=== PATIENT | female | born 1945 | race Caucasian/White ===

== ENCOUNTER → 2017-07-12 11:38 | Outpatient (CLI) | payer MEDICARE, OTHER, SELFPAY ==
--- NOTE | 2017-07-12 11:46 | XR_ITS ---
XR chest 2V HISTORY: ITS.REASON: COUGH ORDERING PHYSICIAN: Raine Barger PATIENT AGE: 71 years COMPARISON: 06/05/2015 FINDINGS: The cardiomediastinal silhouette and pulmonary vascularity are within normal limits. The lungs are clear without infiltrates, suspicious nodules, or pleural effusions. No acute bony abnormalities. IMPRESSION: Negative chest, no acute finding
[2017-07-12 12:25] VITALS: PULSE 76; PULSE 80
== END ==
PROVIDERS: PCP Nurse Practitioner Family; Visit Provider Nurse Practitioner Family
DX: R05 Cough (principal)
CPT/HCPCS: 71046; 94060; 94640

== ENCOUNTER → 2017-11-08 16:23 | Outpatient (CLI) | payer MEDICARE, OTHER, SELFPAY ==
[2017-11-08 18:38] LABS: Blood Urea Nitrogen 7 mg/dL (7-18); Creatinine,Serum 0.74 mg/dL (0.55-1.02); Estimated Glomerular Filt Rate 77 ml/min (>60); GFR (African American) 94 ML/MIN (>60)
== END ==
PROVIDERS: Family Provider Family Medicine; PCP Nurse Practitioner Family; Visit Provider Otolaryngology
DX: D33.3 Benign neoplasm of cranial nerves (principal)
CPT/HCPCS: 36415; 82565; 84520

== ENCOUNTER → 2017-11-09 09:08 | Outpatient (CLI) | payer MEDICARE, OTHER, SELFPAY ==
--- NOTE | 2017-11-09 09:11 | MR_ITS ---
MR head/brain wo/w con HISTORY: Left sided hearing loss and tinnitus with headache and dizziness ITS.REASON: evaluation of temporal bones ORDERING PHYSICIAN: Jean-Claude Sevilla MD PATIENT AGE: 72 years Comparison: 04/27/2016 TECHNIQUE: Standard multiplanar multiecho sequences are performed without and with gadolinium enhancement. Thin section axial and coronal pre and post enhanced T1 weighted images are also obtained of the cerebellopontine angles. FINDINGS: No midline shift, mass effect, intracranial hemorrhage, hydrocephalus, or enhancing lesions are evident. No evidence of acute infarction. There are scant T2 white matter hyperintensities consistent with minimal ischemic gliotic change from small vessel disease. No enhancing lesions are evident. The hippocampal gyri are unremarkable and the temporal horns of the lateral ventricles are symmetric. The pituitary and optic chiasm are unremarkable. No enhancing lesions are evident at the cerebellopontine angles. There is some increased T2 signal within the left mastoid sinus. This however is less apparent on today's study than when compared to the previous exam. IMPRESSION: 1. No evidence of cerebellopontine angle lesion/mass or abnormal enhancement. 2. Small amount of fluid noted within left mastoid sinus. The increased T2 signal of the left mastoid sinus however is much less apparent on today's exam than when compared to the previous study
== END ==
PROVIDERS: Family Provider Family Medicine; PCP Nurse Practitioner Family; Visit Provider Otolaryngology
DX: D33.3 Benign neoplasm of cranial nerves (principal)
CPT/HCPCS: 70553; A9576

== ENCOUNTER → 2017-12-29 08:05 | Outpatient (CLI) | payer MEDICARE, OTHER, SELFPAY ==
[2017-12-29 08:52] LABS: Basophils % 0.3 % (0.1-2.0); Eosinophils # 0.1 K/mm3 (0.0-0.4); Eosinophils % 1.8 % (0.1-12.0); Hematocrit 45.6 % (37.0-47.0); Hemoglobin 14.8 g/dL (12.2-16.2); Lymphocytes # 2.4 K/mm3 (0.7-4.5); Lymphocytes % 31.6 K/mm3 (10-50); Mean Corpuscular HGB Conc 32.5 g/dL (31.8-35.4); Mean Corpuscular Hemoglobin 29.1 pg (27.0-31.2); Mean Corpuscular Volume 89.7 fl (81-99); Mean Platelet Volume 7.6 fl (7.4-10.4); Monocytes # 0.3 K/mm3 (0.1-1.0); Monocytes % 4.1 % (1.7-9.3); Neutrophils # 4.7 K/mm3 (1.8-7.8); Neutrophils % 62.2 % (37.0-80.0); Platelet Count 191 K/mm3 (142-424); Red Blood Count 5.09 M/mm3 (4.20-5.40); Red Cell Distribution Width 15.1 % (11.5-17.5); White Blood Count 7.5 K/mm3 (4.8-10.8)
[2017-12-29 10:59] LABS: Alanine Aminotransferase 25 U/L (12-78); Albumin Level 3.6 gm/dL (3.4-5.0); Albumin/Globulin Ratio 1.1 (1.1-1.8); Alkaline Phosphatase 75 U/L (46-116); Aspartate Amino Transferase 16 U/L (15-37); Blood Urea Nitrogen 6 mg/dL (7-18); Calcium 8.9 mg/dL (8.5-10.1); Carbon Dioxide 32 mmol/L (21.0-32.0); Chloride 102 mmol/L (98-107); Chol/HDL Ratio 3.9 (1-3.5); Cholesterol 144 mg/dL (140-200); Creatinine,Serum 0.62 mg/dL (0.55-1.02); Estimated Glomerular Filt Rate 95 ml/min (>60); GFR (African American) 115 ML/MIN (>60); Globulin 3.3 gm/dl (1.3-3.2); Glucose 83 mg/dL (74-106); HDL Cholesterol 37 mg/dL (29-89); LDL Cholesterol 63 mg/dL (0-130); Sodium 138 mmol/L (136-145); Total Protein,Serum 6.9 gm/dL (6.4-8.2); Triglycerides 219 mg/dL (30-200); VLDL Cholesterol 44 mg/dL (0-40)
[2017-12-30 05:23] LABS: Creatinine, Urine 94.6 mg/dL (Not Estab.); Microalbumin, Urine 3.4 ug/mL (Not Estab.)
[2017-12-30 18:17] LABS: Vitamin B12 617 pg/mL (232-1245); Vitamin D 25 Hydroxy 44.8 ng/mL (30.0-100.0)
== END ==
PROVIDERS: Visit Provider Internal Medicine Endocrinology, Diabetes & Metabolism
DX: I10 Essential (primary) hypertension (principal); E11.649 Type 2 diabetes mellitus with hypoglycemia without coma; E03.8 Other specified hypothyroidism; E53.8 Deficiency of other specified B group vitamins; E55.9 Vitamin D deficiency, unspecified; Z79.4 Long term (current) use of insulin
CPT/HCPCS: 36415; 80053; 80061; 82043; 82570; 82607; 82652; 85025

== ENCOUNTER → 2018-06-30 10:24 | Outpatient (CLI) | payer MEDICARE, BC, SELFPAY ==
[2018-06-30 11:03] LABS: Basophils % 0.5 % (0.1-2.0); Eosinophils # 0.1 K/mm3 (0.0-0.4); Eosinophils % 1.4 % (0.1-12.0); Hematocrit 45.9 % (37.0-47.0); Hemoglobin 14.5 g/dL (12.2-16.2); Lymphocytes # 2.1 K/mm3 (0.7-4.5); Lymphocytes % 30.5 % (10-50); Mean Corpuscular HGB Conc 31.6 g/dL (31.8-35.4); Mean Corpuscular Hemoglobin 28.5 pg (27.0-31.2); Mean Platelet Volume 8.2 fl (7.4-10.4); Monocytes # 0.3 K/mm3 (0.1-1.0); Neutrophils # 4.3 K/mm3 (1.8-7.8); Neutrophils % 63.6 % (37.0-80.0); Platelet Count 189 K/mm3 (142-424); Red Cell Distribution Width 15.2 % (11.5-17.5); White Blood Count 6.7 K/mm3 (4.8-10.8)
[2018-06-30 19:44] LABS: Alanine Aminotransferase 22 U/L (12-78); Albumin Level 3.5 gm/dL (3.4-5.0); Albumin/Globulin Ratio 1.1 (1.1-1.8); Alkaline Phosphatase 69 U/L (46-116); Anion Gap 12.3 mEq/L (5-15); Aspartate Amino Transferase 20 U/L (15-37); Blood Urea Nitrogen 11 mg/dL (7-18); Carbon Dioxide 30 mmol/L (21.0-32.0); Chloride 100 mmol/L (98-107); Chol/HDL Ratio 3.9 (1-3.5); Cholesterol 148 mg/dL (140-200); Creatinine,Serum 0.68 mg/dL (0.55-1.02); Estimated Glomerular Filt Rate 85 ml/min (>60); GFR (African American) 103 ML/MIN (>60); Globulin 3.3 gm/dl (1.3-3.2); Glucose 91 mg/dL (74-106); HDL Cholesterol 38 mg/dL (29-89); LDL Cholesterol 84 mg/dL (0-130); Potassium 4.3 mmoL/L (3.5-5.1); Sodium 138 mmol/L (136-145); Thyroid Stimulating Hormone 1.06 uIU/ml (0.358-3.740); Total Protein,Serum 6.8 gm/dL (6.4-8.2); Triglycerides 129 mg/dL (30-200); VLDL Cholesterol 26 mg/dL (0-40)
== END ==
PROVIDERS: Visit Provider Internal Medicine Endocrinology, Diabetes & Metabolism
DX: E11.9 Type 2 diabetes mellitus without complications (principal); E78.2 Mixed hyperlipidemia; E03.8 Other specified hypothyroidism; Z79.4 Long term (current) use of insulin
CPT/HCPCS: 36415; 80053; 80061; 84443; 85025

== ENCOUNTER → 2018-12-29 07:46 | Outpatient (CLI) | payer MEDICARE, BC, SELFPAY ==
[2018-12-29 08:16] LABS: Creatinine,Urine Random 129 mg/dL (20-320)
[2018-12-29 11:45] LABS: Alanine Aminotransferase 28 U/L (12-78); Albumin Level 3.5 gm/dL (3.4-5.0); Alkaline Phosphatase 76 U/L (46-116); Anion Gap 9.6 mEq/L (5-15); Aspartate Amino Transferase 18 U/L (15-37); Bilirubin,Total 1.1 mg/dL (0.2-1.0); Blood Urea Nitrogen 9 mg/dL (7-18); Calcium 9.3 mg/dL (8.5-10.1); Carbon Dioxide 35 mmol/L (21.0-32.0); Chloride 100 mmol/L (98-107); Chol/HDL Ratio 3.3 (1-3.5); Cholesterol 135 mg/dL (140-200); Creatinine,Serum 0.66 mg/dL (0.55-1.02); Estimated Glomerular Filt Rate 88 ml/min (>60); GFR (African American) 107 ML/MIN (>60); Globulin 3.5 gm/dl (1.3-3.2); Glucose 80 mg/dL (74-106); HDL Cholesterol 41 mg/dL (29-89); LDL Cholesterol 69 mg/dL (0-130); Potassium 4.6 mmoL/L (3.5-5.1); Sodium 140 mmol/L (136-145); Triglycerides 125 mg/dL (30-200); VLDL Cholesterol 25 mg/dL (0-40)
== END ==
PROVIDERS: Visit Provider Internal Medicine Endocrinology, Diabetes & Metabolism
DX: E11.9 Type 2 diabetes mellitus without complications (principal); Z79.4 Long term (current) use of insulin; E78.5 Hyperlipidemia, unspecified
CPT/HCPCS: 36415; 80053; 80061; 82043; 82570; 84436; 84439; 84443

== ENCOUNTER → 2019-03-14 10:19 | Outpatient (CLI) | payer MEDICARE, BC, SELFPAY ==
--- NOTE | 2019-03-14 10:21 | MM_ITS ---
PROCEDURE: MM DIG SCREENING MAMM BI W/CAD CLINICAL INDICATION: SCREENING There is a history of breast cancer patient's paternal aunt and cousins both after menopause. There has been previous biopsy right breast for benign disease. COMPARISON: DMDXUR DIG MAMM-DX UNI-RT from 06/13/2013 DMSB DIG MAMM-SCREEN DANILO from 11/04/2014 DMSB DIG MAMM-SCREEN DANILO from 02/24/2016 TECHNIQUE: Standard CC and MLO images were obtained. R2 CAD reviewed. FINDINGS: Scattered fibroglandular densities are seen in the central portions of both breasts. There is a biopsy clip right breast. There are few scattered benign-appearing microcalcifications in each breast along with a single stable microcalcification right breast. There is a stable small benign-appearing nodular density upper-outer quadrant left breast. There is no suspicious lesion and no suspicious microcalcifications. IMPRESSION: Fibrofatty parenchyma with no suspicious BI-RAD Category: 2 Benign Finding(s) FOLLOW-UP: 1YR 1 Year Follow-up (A letter has been sent to the patient regarding results of the study.) Dictated by: Dr. Perez Mata MD 03/15/2019 16:[address] Perez Mata MD in [place] 03/15/2019 16:36
== END ==
PROVIDERS: PCP Family Medicine; Visit Provider Family Medicine
DX: Z12.31 Encounter for screening mammogram for malignant neoplasm of breast (principal)
CPT/HCPCS: 77067

== ENCOUNTER → 2019-04-09 12:52 | Outpatient (CLI) | payer MEDICARE, BC, SELFPAY ==
--- NOTE | 2019-04-09 12:55 | XR_ITS ---
PROCEDURE: XR ANKLE WT BEARING LT MIN 3V CLINICAL INDICATION: pain Bilateral ankle and heel pain COMPARISON: XR FOOT WT BEARING LT 3V from 04/09/2019 FINDINGS: Unremarkable ankle. Minimal hallux valgus with minimal osteoarthritic change of the 1st MTP joint as well as the first 2nd and 3rd metatarsal tarsal joint. Small calcaneal spur. IMPRESSION: Mild hallux valgus with osteoarthritic change Dictated by: Rizwan Judd MD 04/09/2019 13:27 Electronically signed by Rizwan Judd MD in [place] 04/09/2019 13:27
--- NOTE | 2019-04-09 12:55 | XR_ITS ---
PROCEDURE: XR ANKLE WT BEARING RT MIN 3V CLINICAL INDICATION: pain Bilateral ankle and heel pain COMPARISON: XR FOOT WT BEARING RT 3V from 04/09/2019 FINDINGS: The ankle has an unremarkable appearance. There is mild hallux valgus with mild osteoarthritic change of the 1st MTP joint. Mild osteoarthritis is also present at the 1st 2nd 3rd and 4th metatarsal tarsal joints. Prominent exostosis involves the calcaneus at the posterior subtalar joint posteriorly with an extra calcific density present posterior to the prominent hyperostotic region. IMPRESSION: Osteoarthritis of the posterior subtalar joint with prominent osteophyte formation of the calcaneus at this region Mild hallux valgus with osteoarthritis of the 1st MTP joint Dictated by: Rizwan Judd MD 04/09/2019 13:26 Electronically signed by Rizwan Judd MD in [place] 04/09/2019 13:26
== END ==
PROVIDERS: PCP Family Medicine; Visit Provider Podiatrist
DX: M25.572 Pain in left ankle and joints of left foot (principal); M25.571 Pain in right ankle and joints of right foot; M79.672 Pain in left foot; M79.671 Pain in right foot
CPT/HCPCS: 73610; 73630

== ENCOUNTER → 2019-06-20 12:55 | Outpatient (CLI) | payer MEDICARE, BC, SELFPAY ==
--- NOTE | 2019-06-20 13:01 | CT_ITS ---
PROCEDURE: CT SHOULDER RT WO CON CLINICAL HISTORY: RT SHOULDER PAIN, PULLED MUSCLE COMPARISON: No exams were available for comparison TECHNIQUE: Axial images obtained with sagittal and coronal reformats. All CT scans at the facility use one or more dose reduction, viz: automated exposure control, ma/kV adjustment per patient size (including targeted exams where dose is matched to indication, i.e. head), or iterative reconstruction technique. 3D reconstruction images were performed. FINDINGS: There is no acute fracture dislocation or destructive lesion. No significant degenerative joint disease is apparent. No abnormal soft tissue mass or fluid collection is apparent. There is no significant joint effusion. If rotator cuff pathology is suspected clinically MRI may be useful to further evaluate the shoulder if the patient is MRI compatible. IMPRESSION: No acute findings. Dictated by: Camron Whyte 06/20/2019 13:24 Electronically signed by Camron Whyte in [place] 06/20/2019 13:24
== END ==
PROVIDERS: PCP Family Medicine; Visit Provider Family Medicine
DX: M25.511 Pain in right shoulder (principal); T14.8XXA Other injury of unspecified body region, initial encounter
CPT/HCPCS: 73200

== ENCOUNTER → 2019-06-27 08:22 | Outpatient (CLI) | payer MEDICARE, BC, SELFPAY ==
[2019-06-27 09:08] LABS: Basophils % 0.1 % (0.1-2.0); Hematocrit 46.9 % (37.0-47.0); Lymphocytes # 1.1 K/mm3 (0.7-4.5); Lymphocytes % 8.6 % (10-50); Mean Corpuscular HGB Conc 31.9 g/dL (31.8-35.4); Mean Corpuscular Hemoglobin 28.6 pg (27.0-31.2); Mean Corpuscular Volume 89.6 fl (81-99); Mean Platelet Volume 8.2 fl (7.4-10.4); Monocytes # 0.3 K/mm3 (0.1-1.0); Neutrophils # 11.9 K/mm3 (1.8-7.8); Neutrophils % 89.3 % (37.0-80.0); Platelet Count 240 K/mm3 (142-424); Red Blood Count 5.24 M/mm3 (4.20-5.40); Red Cell Distribution Width 15.1 % (11.5-17.5); White Blood Count 13.3 K/mm3 (4.8-10.8)
[2019-06-27 09:22] LABS: MANUAL DIFFERENTIAL MANUAL DIFFERENTIAL (MANUAL DIFF)
[2019-06-27 11:03] LABS: Alanine Aminotransferase 31 U/L (12-78); Albumin Level 3.6 gm/dL (3.4-5.0); Alkaline Phosphatase 61 U/L (46-116); Anion Gap 18.5 mEq/L (5-15); Aspartate Amino Transferase 14 U/L (15-37); Bilirubin,Total 0.8 mg/dL (0.2-1.0); Blood Urea Nitrogen 8 mg/dL (7-18); Calcium 9.6 mg/dL (8.5-10.1); Carbon Dioxide 25 mmol/L (21.0-32.0); Chloride 99 mmol/L (98-107); Chol/HDL Ratio 3.2 (1-3.5); Cholesterol 167 mg/dL (140-200); Creatinine,Serum 0.73 mg/dL (0.55-1.02); Estimated Glomerular Filt Rate 78 ml/min (>60); GFR (African American) 95 ML/MIN (>60); Globulin 3.7 gm/dl (1.3-3.2); Glucose 185 mg/dL (74-106); HDL Cholesterol 52 mg/dL (29-89); LDL Cholesterol 96 mg/dL (0-130); Potassium 4.5 mmoL/L (3.5-5.1); Sodium 138 mmol/L (136-145); Total Protein,Serum 7.3 gm/dL (6.4-8.2); Triglycerides 93 mg/dL (30-200); VLDL Cholesterol 19 mg/dL (0-40)
[2019-06-27 11:53] LABS: Free T4 (Free Thyroxine) 1.13 ng/dl (0.76-1.46)
[2019-06-27 11:54] LABS: Thyroid Stimulating Hormone 0.57 uIU/ml (0.358-3.740)
[2019-06-27 12:44] LABS: Lymphocytes % 8 % (10-50); Monocytes % 3 % (2-9); Neutrophils % 89 % (42-76); Total Cells Counted 100
[2019-06-27 12:45] LABS: Platelet Estimate Normal; RBC Morphology Normal
[2019-06-28 17:03] LABS: Vitamin B12 785 pg/mL (232-1245); Vitamin D 25 Hydroxy 35.4 ng/mL (30.0-100.0)
== END ==
PROVIDERS: Visit Provider Internal Medicine Endocrinology, Diabetes & Metabolism
DX: E11.65 Type 2 diabetes mellitus with hyperglycemia (principal); E03.8 Other specified hypothyroidism; E55.9 Vitamin D deficiency, unspecified; E53.8 Deficiency of other specified B group vitamins
CPT/HCPCS: 36415; 80053; 80061; 82607; 82652; 84439; 84443; 85007; 85025

== ENCOUNTER 2019-10-10 11:33 | Emergency (ER) | payer MEDICARE, BC, SELFPAY ==
--- NOTE | 2019-10-10 11:50 | HMH.EDGENADL ---
ED Disposition Clinical Impression: Contusion of knee, right Qualifiers: Encounter type: initial encounter Qualified Code(s): S80.01XA - Contusion of right knee, initial encounter Contusion of knee, left Qualifiers: Encounter type: initial encounter Qualified Code(s): S80.02XA - Contusion of left knee, initial encounter Disposition: Home, Self-Care Condition on Discharge: Good Instructions: DI for Contusion Additional Instructions: Tylenol and ice for pain or swelling. Follow-up with your primary care physician if not improving in 4 to 5 days. Referrals: Lan Bravo MD [Primary Care Provider] - - Critical Care Critical Care Time: No Attestation: On 10/10/19, the high probability of a clinically significant, sudden or life threatening deterioration of the following system(s) required my full and direct attention, intervention and personal management. The time I documented below is in addition to time spent performing reported procedures but includes the following listed in this critical care notation. Medical Decision Making - Juan Inquiry Pt receiving controlled substance: No Vital Signs: 10/10/19 12:04 10/10/19 13:26 Temperature 98 F 98.0 F Temperature Source Oral Oral Pulse Rate 74 Pulse Rate [Left Radial] 77 Respiratory Rate 16 18 Blood Pressure 110/80 Blood Pressure [Right Arm] 119/78 Blood Pressure Mean [Right Arm] 91 Blood Pressure Source Automatic Cuff Blood Pressure Position Sitting Blood Pressure Position [Right Arm] Sitting 02 Sat by Pulse Oximetry 98 Oxygen Delivery Method Room Air Room Air General Adult HPI - General Stated complaint: [id number] knee pain, fell at high school Time Seen by Provider: 10/10/19 12:10 - History of Present Illness HPI narrative: The patient states she was at a graduation today, walking up some steps and slipped, falling forward and striking both of her knees in the patellar area. She said she had some bilateral prepatellar swelling which improved after ice was applied. She is able to ambulate. She says that she had bilateral knee replacements over 5 years ago and just wants to have them checked. - Related Data Home Medications Medication Instructions Recorded Confirmed calcium carbonate-vitamin D3 600 See Rx Instructions PO DAILY cap 08/11/17 10/09/19 mg calcium-200 unit capsule carvedilol 3.125 mg tablet 3.125 mg PO BID 08/11/17 10/09/19 citalopram 20 mg tablet 20 mg PO DAILY 08/11/17 10/09/19 ezetimibe 10 mg tablet 10 mg PO DAILY 08/11/17 10/09/19 ferrous sulfate 325 mg (65 mg 325 mg PO DAILY tab 08/11/17 10/09/19 iron) tablet furosemide 20 mg tablet 20 mg PO DAILY 08/11/17 10/09/19 insulin degludec 100 unit/mL (3 66 mg SUB-Q DAILY ml 08/11/17 10/09/19 mL) subcutaneous pen levothyroxine 75 mcg capsule 75 mcg PO DAILY 08/11/17 10/09/19 liraglutide 0.6 mg/0.1 mL (18 mg/3 1.8 mg SUB-Q DAILY ml 08/11/17 10/09/19 mL) subcutaneous pen injector metformin 1,000 mg tablet 1,000 mg PO BID 08/11/17 10/09/19 omeprazole 40 mg capsule,delayed 40 mg PO DAILY 08/11/17 10/09/19 release tolterodine 4 mg capsule,extended 4 mg PO ONCE 08/11/17 10/09/19 release 24 hr triamcinolone acetonide 0.1 % 1 applic TOPICAL BID PRN 08/11/17 10/09/19 topical cream vitamin B complex 1 cap PO DAILY 08/11/17 10/09/19 losartan 100 mg tablet 100 mg PO DAILY 04/09/19 10/09/19 nitrofurantoin macrocrystal 50 mg 50 mg PO QHS 04/09/19 10/09/19 capsule nortriptyline 25 mg capsule 25 mg PO cap 07/04/19 10/09/19 coenzyme Q10 200 mg/gram oral 200 mg PO DAILY g 10/09/19 powder Previous Rx's Medication Instructions Recorded meclizine 25 mg tablet 25 mg PO NEEDED #30 tab 11/17/17 Allergies Allergy/AdvReac Type Severity Reaction Status Date / Time hydrocodone [HYDROCODONE] Allergy Intermediate I-ITCHING Verified 10/09/19 13:17 morphine [MORPHINE] Allergy Intermediate I-ITCHING Verified 10/09/19 13:17 propoxyphene [From [facility]]
[2019-10-10 12:04] VITALS: BP 119/78; PULSE 77; RESP 16; TEMP 36.6; O2SAT 98; BMI 36.8
--- NOTE | 2019-10-10 12:15 | XR_ITS ---
PROCEDURE: XR KNEE RT 3V CLINICAL INDICATION: pain COMPARISON: No exams were available for comparison FINDINGS: Status post total knee prosthesis placement. There is good alignment. No fracture or dislocation. Other findings:None. IMPRESSION: Status post total knee prosthesis placement otherwise negative Dictated by: Rizwan Judd MD 10/10/2019 15:00 Electronically signed by Rizwan Judd MD in [place] 10/10/2019 15:00
--- NOTE | 2019-10-10 12:15 | XR_ITS ---
PROCEDURE: XR KNEE LT 3V CLINICAL INDICATION: pain Posttraumatic pain COMPARISON: XR KNEE RT 3V from 10/10/2019 FINDINGS: There is a total right knee prosthesis in place with good alignment. No evidence of orthopedic complications. There is some periarticular calcification which is nonspecific. Other findings:None. IMPRESSION: Total knee prosthesis present with no acute finding Dictated by: Rizwan Judd MD 10/10/2019 14:06 Electronically signed by Rizwan Judd MD in [place] 10/10/2019 14:06
--- NOTE | 2019-10-10 12:42 | PC.NURSE ---
Pt to rad.
[2019-10-10 13:26] VITALS: BP 110/80; PULSE 74; RESP 18; TEMP 36.7; O2SAT 94
== END 2019-10-10 13:27 | disposition home or self-care (01) ==
PROVIDERS: Emergency Provider Emergency Medicine; PCP Family Medicine
DX: S80.01XA Contusion of right knee, initial encounter (principal); S80.02XA Contusion of left knee, initial encounter; W10.9XXA Fall (on) (from) unspecified stairs and steps, initial encounter; Y92.89 Other specified places as the place of occurrence of the external cause; Z96.651 Presence of right artificial knee joint; Z96.652 Presence of left artificial knee joint; E11.9 Type 2 diabetes mellitus without complications; K21.9 Gastro-esophageal reflux disease without esophagitis; F41.9 Anxiety disorder, unspecified; E78.5 Hyperlipidemia, unspecified; I10 Essential (primary) hypertension; Z90.49 Acquired absence of other specified parts of digestive tract; Z88.5 Allergy status to narcotic agent; Z79.899 Other long term (current) drug therapy
CPT/HCPCS: 73562; 99282

== ENCOUNTER → 2020-05-06 11:52 | Outpatient (CLI) | payer MEDICARE, BC, SELFPAY ==
--- NOTE | 2020-05-06 11:59 | XR_ITS ---
PROCEDURE: XR CHEST 2V CLINICAL HISTORY: COUGH COMPARISON: CR CXR1 CHEST-PORTABLE from 04/15/2014 CR CXR CHEST(2 VIEWS-NOT PORTABLE) from 06/05/2015 CR CXR2V XR chest 2V from 07/12/2017 CR CXR2V XR chest 2V from 03/26/2018 FINDINGS: The cardiomediastinal silhouette and pulmonary vascularity are within normal limits. The lungs are clear without infiltrates, suspicious nodules, or pleural effusions. No acute bony abnormalities. IMPRESSION: No acute findings. Dictated by: Rizwan Judd MD 05/06/2020 17:10 Rizwan Judd MD in [place] 05/06/2020 17:10
== END ==
PROVIDERS: PCP Nurse Practitioner Family; Visit Provider Nurse Practitioner Family
DX: R05 Cough (principal)
CPT/HCPCS: 71046

== ENCOUNTER → 2021-03-24 10:21 | Outpatient (CLI) | payer MEDICARE, BC, SELFPAY | PROVIDERS: PCP Family Medicine; Visit Provider Nurse Practitioner | DX: Z20.822 Contact with and (suspected) exposure to COVID-19 (principal) | CPT/HCPCS: C9803; U0003; U0005 ==

== ENCOUNTER → 2021-04-09 12:29 | Outpatient (CLI) | payer MEDICARE, BC, SELFPAY ==
--- NOTE | 2021-04-09 12:36 | XR_ITS ---
PROCEDURE: XR CHEST 2V CLINICAL HISTORY: COUGH X 2 YEARS COMPARISON: CR CXR2V XR chest 2V from 07/12/2017 CR CXR2V XR chest 2V from 03/26/2018 DX XR CHEST 2V from 05/06/2020 FINDINGS: The cardiomediastinal silhouette and pulmonary vascularity are within normal limits. Coronary artery calcifications noted. The lungs are clear without infiltrates, suspicious nodules, or pleural effusions. No acute bony abnormalities. IMPRESSION: No acute findings. Dictated by: Rizwan Judd MD 04/09/2021 13:25 Rizwan Judd MD in [place] 04/09/2021 13:25
== END ==
PROVIDERS: PCP Nurse Practitioner Family; Visit Provider Nurse Practitioner Family
DX: R05.9 Cough, unspecified (principal)
CPT/HCPCS: 71046

== ENCOUNTER → 2021-05-07 14:39 | Outpatient (CLI) | payer MEDICARE, BC, SELFPAY ==
--- NOTE | 2021-05-07 15:00 | PC.NURSE ---
PFT and 6 minute walk test completed without incident. Albuterol 0.083% given via HHN Pt tolerated tx well.
== END ==
PROVIDERS: PCP Nurse Practitioner Family; Visit Provider Internal Medicine Pulmonary Disease
DX: R06.09 Other forms of dyspnea (principal)
CPT/HCPCS: 94060; 94618; 94726; 94729

== ENCOUNTER → 2021-06-23 13:24 | Outpatient (CLI) | payer MEDICARE, BC, SELFPAY ==
--- NOTE | 2021-06-23 13:25 | CT_ITS ---
FINAL REPORT TECHNIQUE: Axial images were obtained through the chest without contrast. CLINICAL HISTORY: COugh/ SOB, nonsmoker, no sx to chest FINDINGS: There is an aberrant right subclavian artery. There is no significant mediastinal adenopathy. There is a densely calcified mitral annulus. A small sliding-type hiatal hernia is identified. There is scarring at the left base. There is mild nodularity to the liver margin concerning for cirrhosis. Mild splenomegaly is identified. There is asymmetric nodularity of the right breast parenchyma well-seen on images 82 through 96 of series 3. IMPRESSION: Aberrant right subclavian artery. Asymmetric nodularity of the right breast tissue. Please correlate with physical exam and mammography. Findings concerning for cirrhosis with mild splenomegaly. Reviewed, Interpreted and Dictated by Pedrito Adames MD Transcribed by Natalia Chiu Authenticated by Pedrito Adames MD on 06/23/2021 02:42:29 PM [facility]
== END ==
PROVIDERS: PCP Nurse Practitioner Family; Visit Provider Internal Medicine Pulmonary Disease
DX: R05.3 Chronic cough (principal); R06.02 Shortness of breath
CPT/HCPCS: 71250

== ENCOUNTER → 2021-08-11 08:10 | Outpatient (CLI) | payer MEDICARE, BC, SELFPAY ==
--- NOTE | 2021-08-11 08:14 | MM_ITS ---
PROCEDURE INFORMATION: Exam: MG Bilateral Screening 3D Mammography Exam date and time: 08/11/2021 8:14 AM Age: 76 years old Clinical indication: Encounter for screening mammogram for malignant neoplasm of breast. An aunt and several cousins had breast cancer. TECHNIQUE: Imaging protocol: Bilateral Screening tomosynthesis and 2D mammography including computer-aided detection (CAD) when performed. COMPARISON: 1. MG MM DIG SCREENING MAMM BI W/CAD 03/14/2019 10:36 AM 2. MG DMSB DIG MAMM-SCREEN DANILO 02/24/2016 8:58 AM 3. MG DMSB DIG MAMM-SCREEN DANILO 11/04/2014 3:54 PM 4. MG DMDXUR DIG MAMM-DX UNI-RT 06/13/2013 11:59 AM FINDINGS: MAMMOGRAPHY: Breast composition: The breast tissue is composed of scattered areas of fibroglandular density. Mass: No suspicious masses. Architectural distortion: None. Calcifications: No suspicious calcifications. Asymmetric density: No developing asymmetry. Skin thickening: None. Axillary adenopathy: None. Other: Right biopsy clip. IMPRESSION: No mammographic evidence of malignancy. Annual screening is recommended unless otherwise clinically indicated. ASSESSMENT: BI-RADS Category 2: Benign
== END ==
PROVIDERS: PCP Nurse Practitioner Family; Visit Provider Nurse Practitioner Family
DX: Z12.31 Encounter for screening mammogram for malignant neoplasm of breast (principal)
CPT/HCPCS: 77063; 77067

== ENCOUNTER 2021-08-31 14:00 | Outpatient (RCR) | payer MEDICARE, BC, SELFPAY ==
--- NOTE | 2021-08-11 09:59 | HMH.PTOPEV ---
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 Pt reports no radicular s/s currently. PMH:DM Chief Complaint Pain,Stiff Symptom Type Ache,Dull Symptoms Relieved By Rest/Positioning,Heat Symptoms Aggravated By Sitting Prior Functional Limitations Desk Work/Reading,Sleeping, Sitting Current Functional Limitations Dressing,Sleeping,Sitting Symptom Description Constant but Variable Level of pain today (0-10) 4 Pain scale - at its best (0-10) 3 Pain scale - at its worst (0-10) 6 Cervical Eval Palpation Cervical Muscles R Cervical Paraspinal,L Cervical Paraspinal,R Suboccipital,L Suboccipital,R CT Junction,L CT Junction,R Upper Trapezius,L Upper Trapezius Cervical/Thoracic Palpation Findings Tenderness,Trigger Point, Muscle Guarding Posture Head/C-Spine Posture Sitting Position Flexed Head/C-Spine Posture Standing Position Flexed Flexibility Deficits Upper Trapezius Muscle Length (R) Moderate Tightness,(L) Moderate Tightness Levaetor Scapulae Muscle Length (R) Mild Tightness,(L) Mild Tightness Scalene Group Muscle Length (R) Mild Tightness,(L) Mild Tightness Pectoralis Major Muscle Length (R) Mild Tightness,(L) Mild Tightness Pectoralis Minor Muscle Length (R) Mild Tightness,(L) Mild Tightness Passive Joint Mobility Cervical PIVM Dec: R OA L OA R AA L AA R C2/3 L C2/3 R C3/4 L C3/4 R C4/5
== END 2021-08-31 14:05 | disposition home or self-care (01) ==
LOC: PT 14:00
PROVIDERS: Visit Provider Nurse Practitioner Family
DX: M40.00 Postural kyphosis, site unspecified (principal); M54.2 Cervicalgia
CPT/HCPCS: 20560; 97010; 97014; 97035; 97110; 97140; 97163; G0283

== ENCOUNTER → 2021-09-22 10:49 | Outpatient (POV) | payer MEDICARE, BC, SELFPAY | PROVIDERS: Visit Provider Dermatology | DX: Z00.00 Encounter for general adult medical examination without abnormal findings (principal) ==

== ENCOUNTER → 2021-09-22 11:17 | Outpatient (CLI) | payer MEDICARE, BC, SELFPAY ==
[2021-09-23 07:22] LABS: Hep A Ab, IgM Negative (Negative); Hepatitis B Core Antibody IgM Negative (Negative); Hepatitis B Surface Antigen Negative (Negative); Hepatitis C Antibody <0.1 s/co ratio (0.0-0.9)
== END ==
PROVIDERS: Visit Provider Dermatology
DX: Z79.899 Other long term (current) drug therapy; L43.8 Other lichen planus
CPT/HCPCS: 36415; 80074

== ENCOUNTER → 2021-10-20 11:09 | Outpatient (POV) | payer MEDICARE, BC, SELFPAY | PROVIDERS: Visit Provider Dermatology | DX: Z00.00 Encounter for general adult medical examination without abnormal findings (principal) ==

== ENCOUNTER → 2021-11-17 08:51 | Outpatient (POV) | payer MEDICARE, BC, SELFPAY | PROVIDERS: Visit Provider Dermatology | DX: Z00.00 Encounter for general adult medical examination without abnormal findings (principal) ==

== ENCOUNTER → 2022-03-24 13:10 | Outpatient (CLI) | payer MEDICARE, BC, SELFPAY | PROVIDERS: PCP Nurse Practitioner Family; Visit Provider Nurse Practitioner Family | DX: J20.9 Acute bronchitis, unspecified (principal) ==

== ENCOUNTER 2022-07-31 10:45 | Emergency (ER) | payer MEDICARE, BC, SELFPAY ==
[2022-07-31 10:50] VITALS: BP 125/57; PULSE 78; RESP 22; TEMP 36.8; O2SAT 94; BMI 31.2
[2022-07-31 11:11] LABS: UTC Influenza A Antigen Negative (Negative)
[2022-07-31 11:12] LABS: UTC Influenza B Antigen Negative (Negative)
[2022-07-31 11:36] VITALS: BP 125/57; PULSE 78; RESP 22; TEMP 36.8; O2SAT 94
--- NOTE | 2022-07-31 11:36 | EXP.UTC ---
Discharge Plan Disposition Patient Disposition: Home, Self-Care Condition: Good Prescriptions Prescriptions: New azithromycin [azithromycin] 250 mg tablet 250 mg PO DIRECTED Qty: 6 0RF Rx Instructions: Take two (2) tablets on day #1, then one (1) tablet day #2 thru #5 No Action omeprazole 40 mg capsule,delayed release(DR/EC) 40 mg PO DAILY ezetimibe [Zetia] 10 mg tablet 10 mg PO DAILY furosemide 20 mg tablet 20 mg PO DAILY insulin degludec [Tresiba FlexTouch U-100] 100 unit/mL (3 mL) insulin pen 66 mg SUB-Q DAILY metformin 1,000 mg tablet 1,000 mg PO BID liraglutide [Victoza 2-Toni] 0.6 mg/0.1 mL (18 mg/3 mL) pen injector 1.8 mg SUB-Q DAILY levothyroxine 75 mcg capsule 75 mcg PO DAILY tolterodine 4 mg capsule,extended release 24hr 4 mg PO ONCE triamcinolone acetonide 0.1 % cream 1 applic TOPICAL BID PRN (Reason: topical) ferrous sulfate [FeroSul] 325 mg (65 mg iron) tablet 325 mg PO DAILY calcium carbonate-vitamin D3 [Calcium 600 + D(3)] 600 mg calcium- 200 unit capsule See Rx Instructions PO DAILY Label Comments: 600mg PO Rx Instructions: 600mg PO vitamin B complex [Super B-50 Complex] capsule 1 cap PO DAILY nortriptyline 25 mg capsule 25 mg PO meclizine 25 mg tablet 25 mg PO NEEDED Qty: 30 0RF coenzyme Q10 200 mg/gram oral powder 200 mg/gram powder 200 mg PO DAILY losartan 100 mg tablet 100 mg PO DAILY carvedilol 6.25 mg tablet 6.25 mg PO citalopram 40 mg tablet 40 mg PO doxycycline hyclate 100 mg tablet 100 mg PO BID 10 Days Qty: 20 0RF (DME) pen needle, diabetic 32 gauge x 5/32 needle See Rx Instructions .ROUTE .MEDSUPPLY Qty: 50 Rx Instructions: As directed insulin degludec 200 unit/mL (3 mL) insulin pen SQ (DME) blood sugar diagnostic Strip See Rx Instructions .ROUTE .MEDSUPPLY Qty: 10 Rx Instructions: As directed nystatin-triamcinolone 100,000-0.1 unit/gram-% ointment TOPICAL Cortisporin-TC 3.3-3-10-0.5 mg/mL drops,suspension 4 drp OTIC TID 7 Days Qty: 10 0RF Rx Instructions: iv gtts bilateral tid x 7 days tolterodine [Detrol LA] 4 mg capsule,extended release 24hr 4 mg PO DAILY Qty: 90 3RF nitrofurantoin macrocrystal 50 mg capsule 50 mg PO DAILY Qty: 90 3RF Rx Instructions: must administer with a meal/food fluticasone propionate [Flonase Allergy Relief] 50 mcg/actuation spray,suspension 1 spray INTRANASAL DAILY 90 Days Qty: 16 3RF Rx Instructions: administer into each nostril azelastine 205.5 mcg (0.15 %) spray,non-aerosol 2 spray INTRANASAL HS 90 Days Qty: 30 3RF Rx Instructions: administer into each nostril cetirizine [Zyrtec] 10 mg tablet 10 mg PO DAILY PRN (Reason: allergy symptoms) Qty: 30 2RF nitrofurantoin macrocrystal 50 mg capsule 50 mg PO QHS Qty: 90 5RF Referrals Follow up/Referrals: Deuce Esquivel MD [Primary Care Provider] - See instructions Activity Restrictions/Add. Instructions Additional Instructions/Restrictions: Start antibiotic today. Be sure to complete entire prescription even if feeling better Tylenol and ibuprofen as needed for pain or fever Humidifier/vaporizer/hot steamy shower Follow-up with primary care tomorrow. Follow-up immediately in the ER of the [facility] for new or worsening symptoms or no noticeable improvement over the next 48-72 hours. Stop smoking Inhaler every 4-6 hours as needed. Should help open airways improved cough, wheezing, shortness of breath Jeff Ortiz will not cause drowsiness to use at bedtime to help stop cough so that she can get some sleep Start steroids today. Helps with inflammation therefore coughing and wheezing. Follow directions on package. Clinical Impressions Clinical Impression: Acute bronchitis, Otitis media Instructions Patient Instructions: Middle Ear Inf
== END 2022-07-31 12:00 | disposition home or self-care (01) ==
PROVIDERS: Emergency Provider Nurse Practitioner Family; PCP Family Medicine
DX: J20.9 Acute bronchitis, unspecified (principal); H66.90 Otitis media, unspecified, unspecified ear
CPT/HCPCS: 87804; 99212; 99213; C9803; G0463; U0003; U0005

== ENCOUNTER → 2022-09-17 06:20 | Outpatient (CLI) | payer MEDICARE, BC, SELFPAY | PROVIDERS: PCP Family Medicine; Visit Provider Nurse Practitioner | DX: E66.9 Obesity, unspecified (principal); I45.10 Unspecified right bundle-branch block; R06.09 Other forms of dyspnea; R53.1 Weakness; R53.83 Other fatigue; R94.31 Abnormal electrocardiogram [ECG] [EKG]; Z82.49 Family history of ischemic heart disease and other diseases of the circulatory system; Z68.31 Body mass index [BMI] 31.0-31.9, adult | CPT/HCPCS: 78452; 93017; 93306; A9502; J2785 ==

== ENCOUNTER → 2022-09-28 11:16 | Outpatient (CLI) | payer MEDICARE, BC, SELFPAY | PROVIDERS: PCP Nurse Practitioner Family; Visit Provider Physician Assistant | DX: R06.09 Other forms of dyspnea (principal); R53.1 Weakness; R53.83 Other fatigue; I45.10 Unspecified right bundle-branch block; R94.31 Abnormal electrocardiogram [ECG] [EKG] | CPT/HCPCS: 93225 ==

== ENCOUNTER → 2022-10-26 10:30 | Outpatient (CLI) | payer MEDICARE, BC, SELFPAY ==
--- NOTE | 2022-10-26 10:31 | MM_ITS ---
PROCEDURE INFORMATION: Exam: MG Bilateral Screening 3D Mammography Exam date and time: 10/26/2022 10:27 AM Age: 77 years old Clinical indication: Screening examination. Paternal cousins and paternal aunt had breast cancer. TECHNIQUE: Imaging protocol: Bilateral Screening tomosynthesis and 2D mammography including computer-aided detection (CAD) when performed. COMPARISON: 1. MG MM DIG SCREENING MAMM BI W/CAD 08/11/2021 8:09 AM 2. MG MM DIG SCREENING MAMM BI W/CAD 03/14/2019 10:36 AM 3. MG DMSB DIG MAMM-SCREEN DANILO 02/24/2016 8:58 AM 4. MG DMSB DIG MAMM-SCREEN DANILO 11/04/2014 3:54 PM FINDINGS: MAMMOGRAPHY: Breast composition: There are scattered areas of fibroglandular density. Mass: No suspicious mass. Architectural distortion: None. Calcifications: No suspicious calcifications. Asymmetric density: No developing asymmetry Skin thickening: None. Axillary adenopathy: None. Other: Right biopsy clip. IMPRESSION: No mammographic evidence of malignancy. Annual screening is recommended unless otherwise clinically indicated. ASSESSMENT: BI-RADS Category 2: Benign
== END ==
PROVIDERS: PCP Nurse Practitioner Family; Visit Provider Nurse Practitioner Family
DX: Z12.31 Encounter for screening mammogram for malignant neoplasm of breast (principal)
CPT/HCPCS: 77063; 77067

== ENCOUNTER 2022-12-28 09:48 | Day surgery (SDC) | payer MEDICARE, BC, SELFPAY ==
[2022-12-27 09:59] VITALS: BMI 30.9
[2022-12-28] VITALS (12 sets, daily range): BP systolic 82–137; BP diastolic 49–62; PULSE 72–86; RESP 15–18; TEMP 36.1; O2SAT 90–97
--- NOTE | 2022-12-28 10:13 | P.PNANES_ITS ---
[facility] Disclaimer: The information contained in this section may have been updated after the patient was seen, as this information can be updated by other users. Medical History Allergic rhinitis, unspecified Chronic cough Surgical History History of carpal tunnel release History of cataract surgery History of section History of colonoscopy History of knee replacement History of myringotomy History of tonsillectomy History of total hip replacement History of umbilical hernia repair Hx of cholecystectomy Family History Other Cancer Coronary artery disease Diabetes Heart attack Hyperlipidemia Hypertension Stroke Social History Smoking Status: Never smoker alcohol intake: never substance use type: denies use current occupational status: other Travel in the last 8 weeks: None household members: spouse housing: house lives independently: No marital status: education level: college service: No residential: No caffeine: Yes special lela needs: No agree to transfusion: No do you feel safe at home: Yes victim of physical abuse: No victim of emotional abuse: No victim of sexual abuse: No would you like helpful sources: No [facility] Anesthesia Checklist Patient Identification Patient Identification: Arm Band and Verbal (Name & ) Structural Data Admitted From: Home Planned Operative Procedure/s: Colonoscopy Consent for Planned Operative Procedure(s) Verified: Yes NPO Status Verified Time NPO: 00:00 Additional verifications Anesthesia Reactions: No Hx Blood Transfusions: No Blood Transfusion Reaction: No Airway Assessment C-Spine Mobility Assessed: Yes TMJ Mobility Assessed: Yes Dentition: Edentulous Neurological Assessment Level of Consciousness: Awake Hx Seizures: No Numbness or tingling in extremities: No Anesthesia Plan Anesthesia Risk discussed: Yes Anesthesia Plan: Verified ASA Class: III Anesthesia Type: MAC
--- NOTE | 2022-12-28 10:52 | P.PCN_ITS ---
Procedure: Date: 12/28/22 Patient Date of :: 1945 Procedure Performed:: Colonoscopy with polypectomy Indications:: History of colon polyps Performing Provider:: Cole Zavala MD Referring Provider:: . Sedation:: Monitored anesthesia care Procedure:: After informed consent was obtained the patient was taken to the endoscopy suite. Sedation ensued after the patient was transferred to the left lateral d ecubitus position. Pulse, blood pressure, and oxygen saturation were monitored throughout the procedure. Digital rectal exam revealed no significant abnormality. The colonoscope was placed in position. The entire colon was evaluated. The colonoscope was carefully removed and the patient was transferred to recovery in stable condition. Please see findings and specimens below for detail. Findings:: Bowel preparation for Profound lack of relaxation Sigmoid diverticulosis Lobulated hepatic flexure polyp Specimens:: Lobulated hepatic flexure polyp (cold snare) Recommendations:: Timing of repeat colonoscopy is pending pathology but will likely be around 1-2 years with extended bowel preparation. Complications:: Poor bowel preparation Estimated blood obtained (mL): 1 Colonoscopy Component Colonoscopy Component Was a colonoscopy performed during today's procedure?: Yes Recommended follow up colonoscopy of at least 10 years?: No If no, follow up colonoscopy recommended in ___ years?: 1-2 years Reason for not recommending >/= 10 yr follow-up interval?: History of polyps; poor bowel preparation
[2022-12-28 11:28] LABS: POC Glucose,Bedside 82 (70-110)
--- NOTE | 2022-12-28 13:00 | XR_ITS ---
FINAL REPORT CLINICAL HISTORY: Post-colonoscopy abdominal pain FINDINGS: Supine abdomen, upper abdomen, and PA chest: The PA view of the chest is unremarkable in appearance. No infiltrate or effusion is identified. The abdominal films reveal a nonspecific gas pattern without evidence of obstruction. There are surgical implants for a left sacroiliac fusion and a right hip total arthroplasty. No evidence of intra-abdominal air is seen. IMPRESSION: Nonspecific gas pattern without evidence of obstruction or free air. Reviewed, Interpreted and Dictated by Rodríguez Resendiz III, MD Transcribed by Marion Pendleton Authenticated and [facility]
--- NOTE | 2022-12-28 13:05 | SUR.PHASEII ---
pt returned from Radiology.
== END 2022-12-28 14:05 | disposition home or self-care (01) ==
PROVIDERS: PCP Nurse Practitioner Family; Visit Provider Surgery
PROC: 0DJD8ZZ Inspection of Lower Intestinal Tract, Via Natural or Artificial Opening Endoscopic (ICD-10-PCS; principal; 2022-12-28 11:30)
DX: Z12.11 Encounter for screening for malignant neoplasm of colon (principal); Z86.010 Personal history of colon polyps; D12.3 Benign neoplasm of transverse colon; K57.30 Diverticulosis of large intestine without perforation or abscess without bleeding
CPT/HCPCS: 45385; 74021; 82962; 88305; J2704

== ENCOUNTER → 2023-04-25 10:04 | Outpatient (CLI) | payer MEDICARE, BC, SELFPAY ==
[2023-04-25 13:17] LABS: Hemoglobin A1C 5.3 % (4.0-6.0)
[2023-04-25 13:34] LABS: Alanine Aminotransferase 22 U/L (12-78); Albumin Level 4.3 g/dl (3.5-5.0); Albumin/Globulin Ratio 1.4 (1.1-1.8); Alkaline Phosphatase 70 U/L (38-126); Anion Gap 14.2 mEq/L (5-15); Aspartate Amino Transferase 31 U/L (14-36); Bilirubin,Total 0.8 mg/dl (0.2-1.3); Blood Urea Nitrogen 8 mg/dl (7-17); Calcium 8.6 mg/dl (8.4-10.2); Carbon Dioxide 27 mmol/L (22.0-30.0); Chloride 93 mmol/L (98-107); Chol/HDL Ratio 4.2 (1-3.5); Cholesterol 142 mg/dl (140-200); Estimated Glomerular Filt Rate 97 ml/min (>60); GFR (African American) 118 ML/MIN (>60); Glucose 91 mg/dl (74-100); HDL Cholesterol 34 mg/dl (40-60); Potassium 4.2 mmoL/L (3.5-5.1); Sodium 130 mmol/L (136-145); Total Protein,Serum 7.3 g/dl (6.3-8.2); Triglycerides 188 mg/dl (30-150); VLDL Cholesterol 38 mg/dL (0-40)
[2023-04-25 14:04] LABS: Thyroid Stimulating Hormone 1.03 uIU/mL (0.465-4.68)
== END ==
PROVIDERS: PCP Nurse Practitioner Family; Visit Provider Nurse Practitioner Family
DX: E11.65 Type 2 diabetes mellitus with hyperglycemia (principal); Z79.4 Long term (current) use of insulin; E03.9 Hypothyroidism, unspecified
CPT/HCPCS: 80053; 80061; 83036; 84443

== ENCOUNTER → 2023-05-16 12:18 | Outpatient (CLI) | payer MEDICARE, BC, SELFPAY ==
--- NOTE | 2023-05-16 12:23 | XR_ITS ---
FINAL REPORT TECHNIQUE: Left index finger, 2 views. CLINICAL HISTORY: left index finger swelling, pain COMPARISON: None FINDINGS: LEFT INDEX FINGER: There is moderate heterotrophic change of the distal interphalangeal and proximal inner phalangeal joints. There is very minimal fragmentation involving the dorsal aspect of the DIP joint, likely degenerative. No acute bony abnormality is identified. 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 Reviewed, Interpreted and Dictated by Pedrito Adames MD Transcribed by Marion Pendleton Authenticated and [facility]
== END ==
PROVIDERS: PCP Nurse Practitioner Family; Visit Provider Nurse Practitioner Family
DX: M79.89 Other specified soft tissue disorders (principal)
CPT/HCPCS: 73140

== ENCOUNTER → 2023-05-16 14:39 | Outpatient (CLI) | payer MEDICARE, BC, SELFPAY ==
[2023-05-16 14:57] LABS: Uric Acid 5.8 mg/dl (2.5-6.2)
[2023-05-18 07:50] LABS: RA Latex Turbid. 11.5 IU/mL (<14.0)
[2023-05-18 11:14] LABS: Antinuclear Antibodies, IFA Negative (.)
== END ==
PROVIDERS: PCP Nurse Practitioner Family; Visit Provider Nurse Practitioner Family
DX: M79.89 Other specified soft tissue disorders (principal)
CPT/HCPCS: 73140; 84550; 86038; 86431

== ENCOUNTER 2023-07-07 09:53 | Emergency (ER) | payer MEDICARE, BC, SELFPAY ==
--- NOTE | 2023-07-07 09:58 | XR_ITS ---
FINAL REPORT CLINICAL HISTORY: FALL yesterday medial sided pain FINDINGS: Three views of the right knee reveal no evidence of fracture or dislocation. Patient is status post right knee arthroplasty. The bony alignment is normal. The joint spaces are preserved. There is no evidence of joint effusion. No localized soft tissue abnormality is identified. IMPRESSION: No acute abnormality identified. Reviewed, Interpreted and Dictated by Rodríguez Resendiz III, MD Transcribed by Shruti Gaspar Authenticated and [facility]
--- NOTE | 2023-07-07 09:58 | XR_ITS ---
FINAL REPORT CLINICAL HISTORY: FALL yesterday pain FINDINGS: RIGHT ANKLE 3 views of the right ankle were obtained. There is no acute fracture or dislocation. The mortise is intact. Visualized joint spaces are normally aligned. Degenerative changes are noted. There is lateral soft tissue swelling. IMPRESSION: No acute bony abnormality. Reviewed, Interpreted and Dictated by Rodríguez Resendiz III, MD Transcribed by Shruti Gaspar Authenticated and [facility]
[2023-07-07 10:40] VITALS: BP 116/67; PULSE 86; RESP 18; TEMP 36.8; O2SAT 97; BMI 31.4
--- NOTE | 2023-07-07 10:54 | ED_ITS ---
Discharge Plan Disposition Patient Disposition: Home, Self-Care Condition: Good Prescriptions Prescriptions: No Action omeprazole 40 mg capsule,delayed release(DR/EC) 40 mg PO DAILY ezetimibe [Zetia] 10 mg tablet 10 mg PO DAILY metformin 1,000 mg tablet 1,000 mg PO BID levothyroxine 75 mcg capsule 75 mcg PO DAILY ferrous sulfate [FeroSul] 325 mg (65 mg iron) tablet 325 mg PO DAILY calcium carbonate-vitamin D3 [Calcium 600 + D(3)] 600 mg calcium- 200 unit capsule 600 cap PO BID Patient Comments: 600mg PO Rx Instructions: 600mg PO vitamin B complex [Super B-50 Complex] capsule 1 cap PO DAILY nortriptyline 25 mg capsule 25 mg PO HS cephalexin 250 mg capsule 250 mg PO HS Lumigan 0.01 % drops 1 drp Eye-Both HS Victoza 2-Toni 0.6 mg/0.1 mL (18 mg/3 mL) pen injector 1.2 mg SQ DAILY triamcinolone acetonide 0.1 % ointment 1 applic topical DAILY PRN losartan 100 mg tablet 100 mg PO DAILY insulin degludec [Tresiba FlexTouch U-100] 100 unit/mL (3 mL) insulin pen 56 unit SQ HS meclizine 25 mg tablet 25 mg PO NEEDED Qty: 30 0RF coenzyme Q10 200 mg/gram oral powder 200 mg/gram powder 200 mg PO DAILY (DME) pen needle, diabetic 32 gauge x 5/32 needle See Rx Instructions .ROUTE .MEDSUPPLY Qty: 50 Rx Instructions: As directed (DME) blood sugar diagnostic Strip See Rx Instructions .ROUTE .MEDSUPPLY Qty: 10 Rx Instructions: As directed cetirizine [Zyrtec] 10 mg tablet 10 mg PO DAILY PRN (Reason: allergy symptoms) Qty: 30 2RF metoprolol succinate [Toprol XL] 25 mg tablet extended release 24 hr 25 mg PO DAILY Qty: 90 1RF citalopram 20 mg tablet 20 mg PO DAILY Qty: 30 2RF furosemide 20 mg tablet 20 mg PO DAILY 30 Days Qty: 30 2RF nitrofurantoin macrocrystal 50 mg capsule 50 mg PO DAILY tolterodine [Detrol LA] 4 mg capsule,extended release 24hr 4 mg PO DAILY Referrals Follow up/Referrals: Barger,Raine, MAIL CARRIER TECHNICIAN [Primary Care Provider] - See instructions Shamar Knutson DO [Staff Physician] - See instructions Activity Restrictions/Add. Instructions Additional Instructions/Restrictions: *weight bearing as tolerated *RICE, Rest the extremity, Ice 15-20 minutes 3-4 times daily, Compress- wear the jeremy wrap as discussed as much as possible to help reduce swelling and pain, Elevate the extremity when at rest *Elevate when resting? *Ibuprofen 600-800mg every 6-8 hours as needed for pain an inflammation if you can take it. If need something more can take Tylenol in between doses of Ibuprofen to help Immediately follow up with your family doctor for new or worsening of symptoms, or no noticeable improvement over the next 3-5 days Clinical Impressions Clinical Impression: Fall Qualifiers: Encounter type: initial encounter Qualified Code(s): W19.XXXA - Unspecified fall, initial encounter Instructions Patient Instructions: DI for Knee Sprain, Contusion, DI for Ankle Sprain Discharge ED Provider: Mary Haji [facility] [place] HPI General Stated complaint: had a fall 6:30 knee pain down leg Mode of Arrival: Ambulatory Source of Information: Patient Limitations: No Limitations Time Seen by Provider: 07/07/23 10:54 Description of Symptoms (Recalled from Triage Doc. by RN): Pt fell last night walking down the wheel chair ramp. She hurts in her right knee and right ankle. HEENT Symptoms (Recalled from RN notes): No Resp Symptoms (Recalled from RN notes): No Skin Symptoms (Recalled from RN notes): No MS Symptoms (Recalled from RN notes): Yes Functional Status (Recalled from RN notes): n/a History of Present Illness Provider Complaint: Patient states that she was walking down the wheelchair ramp at home last night when she slipped and fell landing on her right knee and ankle States that she had surgery on the right knee about 10 yrs ago States that she has been putting ice on it and propping it up on pillows States that she was worried she may have done something to her knee where she had surgery on that knee Related Data Home Medications Medication Instructions Recorded Confirmed calcium carbonate 600 mg-vitamin 600 cap PO BID Supplement 08/11/17 07/07/23 D3 5 mcg (200 unit) capsule (Calcium 600 + D(3)) ezetimibe 10 mg tablet (Zetia) 10 mg PO DAILY Cholesterol 08/11/17 07/07/23 ferrous sulfate 325 mg (65 mg 325 mg PO DAILY Supplement 08/11/17 07/07/23 iron) tablet (FeroSul) levothyroxine 75 mcg capsule 75 mcg PO DAILY thyroid 08/11/17 07/07/23 metformin 1,000 mg tablet 1,000 mg PO BID Diabetes 08/11/17 07/07/23 omeprazole 40 mg capsule,delayed 40 mg PO DAILY GERD 08/11/17 07/07/23 release vitamin B complex (Super B-50 1 cap PO DAILY Supplement 08/11/17 06/14/23 Complex capsule) nortriptyline 25 mg capsule 25 mg PO HS leg pain 07/04/19 07/07/23 coenzyme Q10 200 mg/gram oral 200 mg PO DAILY Supplement 10/09/19 07/07/23 powder (H2Q CoQ10) blood sugar diagnostic #10 ea 06/20/20 06/14/23 pen needle, diabetic 32 gauge x #50 ea 06/20/20 06/14/2332 nitrofurantoin macrocrystal 50 mg 50 mg PO DAILY antibiotic 12/27/22 07/07/23 capsule tolterodine 4 mg capsule,extended 4 mg PO DAILY bladder 12/27/22 07/07/23 release 24 hr (Detrol LA) bimatoprost 0.01 % eye drops 1 drp Eye-Both HS 04/25/23 07/07/23 (Mary) cephalexin 250 mg capsule 250 mg PO HS 04/25/23 07/07/23 liraglutide 0.6 mg/0.1 mL (18 mg/3 1.2 mg SQ DAILY Diabetes 04/25/23 07/07/23 mL) subcutaneous pen injector (Victoza 2-Toni) insulin degludec 100 unit/mL (3 56 unit SQ HS 05/16/23 07/07/23 mL) subcutaneous pen (Tresiba FlexTouch U-100 insulin) losartan 100 mg tablet 100 mg PO DAILY 05/16/23 07/07/23 triamcinolone acetonide 0.1 % 1 applic topical DAILY PRN 05/16/23 06/14/23 topical ointment Previous Rx's Medication Instructions Recorded meclizine 25 mg tablet 25 mg PO NEEDED 1/2- 1 tab 11/17/17 every 6-8 hrs prn dizziness #30 tabs cetirizine 10 mg tablet (Zyrtec) 10 mg PO DAILY PRN allergy 05/26/21 symptoms #30 tabs metoprolol succinate 25 mg 25 mg PO DAILY htn #90 tabs 01/17/23 tablet,extended release 24 hr (Toprol XL) citalopram 20 mg tablet 20 mg PO DAILY #30 tabs 05/10/23 furosemide 20 mg tablet 20 mg PO DAILY Fluid 30 days #30 05/10/23 tabs Allergies Allergy/AdvReac Type Severity Reaction Status Date / Time hydrocodone [HYDROCODONE] Allergy Intermediate I-ITCHING Verified 07/07/23 10:54 morphine [MORPHINE] Allergy Intermediate I-ITCHING Verified 07/07/23 10:54 propoxyphene [From DARVON] Allergy Unknown HEAVY Verified 07/07/23 10:54 SEDATION Worker's Comp Is this a Worker's Comp case?: No [facility] Disclaimer: The information contained in this section may have been updated after the patient was seen, as this information can be updated by other users. Medical History Allergic rhinitis, unspecified Chronic cough Surgical History History of carpal tunnel release History of cataract surgery History of section History of colonoscopy History of knee replacement History of myringotomy History of tonsillectomy History of total hip replacement History of umbilical hernia repair Hx of cholecystectomy Family History Other Cancer Coronary artery disease Diabetes Heart attack Hyperlipidemia Hypertension Stroke Social History Smoking Status: Never smoker alcohol intake: never substance use type: denies use current occupational status: other Travel in the last 8 weeks: None household members: spouse housing: house lives independently: No marital status: education level: college service: No care home: No caffeine: Yes special lela needs: No agree to transfusion: No do you feel safe at home: Yes victim of physical abuse: No victim of emotional abuse: No victim of sexual abuse: No would you like helpful sources: No ROS Obtained: Yes All systems reviewed & no additional complaints except as documented and Yes Systems reviewed as appropriate & no additional complaints except as documented Constitutional Constitutional: Reports system reviewed and no additional complaints, except as documented and Reports as per HPI Cardiovascular Cardiovascular: Reports system reviewed and no additional complaints, except as documented and Reports as per HPI Respiratory Respiratory: Reports system reviewed and no additional complaints, except as documented and Reports as per HPI Gastrointestinal Gastrointestingal: Reports system reviewed and no additional complaints, except as documented and as per HPI Musculoskeletal Musculoskeletal: Reports system reviewed and no additional complaints, except as documented, Reports as per HPI and Reports other Comments: Pain and swelling in right knee and right ankle after falling yesterday at home Physical Exam General General appearance: alert and in no apparent distress ENT ENT exam: Present mucous membranes moist Respiratory Respiratory exam: Present normal lung sounds bilaterally; Absent respiratory distress or wheezes Cardiovascular Cardiovascular exam: Present regular rate, normal rhythm and normal heart sounds Expanded Lower Extremity Exam Right: Knee exam: Present tenderness and swelling Lower leg exam: Present normal inspection Ankle exam: Present tenderness, swelling and ecchymosis Gait: observed and limited by pain (walks with walker) Neurological Exam Neurological exam: Present alert, oriented X3 and normal gait Medical Decision Making Juan Inquiry Pt receiving controlled substance: No Juan was queried for this patient: No Vital Signs: 07/07/23 10:40 Temperature 98.3 F Temperature Source Oral Pulse Rate [Right Radial] 86 Respiratory Rate 18 Blood Pressure [Right Arm] 116/67 Blood Pressure Mean [Right Arm] 83 Blood Pressure Source [Right Arm] Automatic Cuff Blood Pressure Position [Right Arm] Sitting 02 Sat by Pulse Oximetry 97 Oxygen Delivery Method Room Air Orders (Tests/Meds): ORDERS Category Date Time Status XR ankle RT min 3V Stat Exams 07/07/23 09:58 Taken XR knee RT 3V Stat Exams 07/07/23 09:58 Taken Radiology Data #1: Image(s): Knee Image Reviewed: Yes I have reviewed radiologist's interpretation FINDINGS: Three views of the right knee reveal no evidence of fracture or dislocation. Patient is status post right knee arthroplasty. The bony alignment is normal. The joint spaces are preserved. There is no evidence of joint effusion. No localized soft tissue abnormality is identified. IMPRESSION: No acute abnormality identified. #2: Image(s): Ankle Image Reviewed: Yes I have reviewed radiologist's interpretation FINDINGS: RIGHT ANKLE 3 views of the right ankle were obtained. There is no acute fracture or dislocation. The mortise is intact. Visualized joint spaces are normally aligned. Degenerative changes are noted. There is lateral soft tissue swelling. IMPRESSION: No acute bony abnormality.
[2023-07-07 11:35] VITALS: BP 116/67; PULSE 86; RESP 18; TEMP 36.8; O2SAT 97
== END 2023-07-07 11:35 | disposition home or self-care (01) ==
PROVIDERS: Emergency Provider Nurse Practitioner; PCP Nurse Practitioner Family
DX: M25.561 Pain in right knee (principal); M25.571 Pain in right ankle and joints of right foot; W10.2XXA Fall (on)(from) incline, initial encounter
CPT/HCPCS: 73562; 73610; 99212; 99214; G0463

== ENCOUNTER 2023-08-19 15:11 | Outpatient (CLI) | payer MEDICARE, BC, SELFPAY ==
[2023-08-19 15:29] LABS: Basophils # 0.1 K/mm3 (0-0.2); Basophils % 0.9 % (0.1-2.0); Eosinophils # 0.1 K/mm3 (0.0-0.4); Eosinophils % 1.1 % (0.1-12.0); Hemoglobin 13.3 g/dL (12.2-16.2); Lymphocytes # 1.7 K/mm3 (0.7-4.5); Lymphocytes % 22.8 % (10-50); Mean Corpuscular HGB Conc 30.9 g/dL (31.8-35.4); Mean Corpuscular Hemoglobin 25.5 pg (27.0-31.2); Mean Corpuscular Volume 82.3 fl (81-99); Monocytes # 0.4 K/mm3 (0.1-1.0); Monocytes % 5.3 % (1.7-9.3); Neutrophils # 5.1 K/mm3 (1.8-7.8); Neutrophils % 69.9 % (37.0-80.0); Platelet Count 261 K/mm3 (142-424); Red Blood Count 5.23 M/mm3 (4.20-5.40); Red Cell Distribution Width 16.6 % (11.5-17.5); White Blood Count 7.3 K/mm3 (4.8-10.8)
[2023-08-19 15:44] LABS: Microalbumin < 6.000 mg/L (0-16.7)
[2023-08-19 15:55] LABS: Hemoglobin A1C 5.8 % (4.0-6.0)
[2023-08-19 16:01] LABS: Chloride 97 mmol/L (98-107); Potassium 4.3 mmoL/L (3.5-5.1); Sodium 138 mmol/L (136-145)
[2023-08-19 16:04] LABS: Alanine Aminotransferase 20 U/L (12-78); Albumin/Globulin Ratio 1.5 (1.1-1.8); Alkaline Phosphatase 82 U/L (38-126); Anion Gap 15.3 mEq/L (5-15); Aspartate Amino Transferase 32 U/L (14-36); Bilirubin,Total 0.9 mg/dl (0.2-1.3); Blood Urea Nitrogen 8 mg/dl (7-17); Carbon Dioxide 30 mmol/L (22.0-30.0); Estimated Glomerular Filt Rate 97 ml/min (>60); GFR (African American) 117 ML/MIN (>60); Globulin 2.6 g/dL (1.3-3.2); Total Protein,Serum 6.6 g/dl (6.3-8.2)
[2023-08-19 16:05] LABS: Calcium 8.9 mg/dl (8.4-10.2); Glucose 70 mg/dl (74-100)
[2023-08-19 16:34] LABS: Thyroid Stimulating Hormone 1.24 uIU/mL (0.465-4.68)
== END 2023-08-19 23:59 ==
LOC: LAB.DROPOF 15:11
PROVIDERS: PCP Nurse Practitioner Family; Visit Provider Nurse Practitioner Family
DX: E11.9 Type 2 diabetes mellitus without complications (principal); Z79.4 Long term (current) use of insulin; E03.9 Hypothyroidism, unspecified; Z79.84 Long term (current) use of oral hypoglycemic drugs; Z79.85 Long-term (current) use of injectable non-insulin antidiabetic drugs
CPT/HCPCS: 80053; 82043; 83036; 84443; 85025

== ENCOUNTER 2023-11-14 15:05 | Outpatient (CLI) | payer MEDICARE, BC, SELFPAY ==
[2023-11-14 14:39] LABS: Basophils # 0.1 K/mm3 (0-0.2); Basophils % 0.7 % (0.1-2.0); Eosinophils # 0.1 K/mm3 (0.0-0.4); Eosinophils % 1.1 % (0.1-12.0); Hemoglobin 12.8 g/dL (12.2-16.2); Lymphocytes # 1.8 K/mm3 (0.7-4.5); Lymphocytes % 25.9 % (10-50); Mean Corpuscular Hemoglobin 24.9 pg (27.0-31.2); Mean Corpuscular Volume 77.8 fl (81-99); Mean Platelet Volume 8.9 fl (7.4-10.4); Monocytes # 0.4 K/mm3 (0.1-1.0); Monocytes % 5.2 % (1.7-9.3); Neutrophils # 4.7 K/mm3 (1.8-7.8); Neutrophils % 67.1 % (37.0-80.0); Platelet Count 211 K/mm3 (142-424); Red Blood Count 5.14 M/mm3 (4.20-5.40); Red Cell Distribution Width 17.5 % (11.5-17.5); White Blood Count 6.9 K/mm3 (4.8-10.8)
[2023-11-14 15:03] LABS: Alanine Aminotransferase 19 U/L (12-78); Albumin Level 4.2 g/dl (3.5-5.0); Albumin/Globulin Ratio 1.4 (1.1-1.8); Alkaline Phosphatase 65 U/L (38-126); Anion Gap 12.5 mEq/L (5-15); Aspartate Amino Transferase 31 U/L (14-36); Bilirubin,Total 0.8 mg/dl (0.2-1.3); Blood Urea Nitrogen 7 mg/dl (7-17); Calcium 9.4 mg/dl (8.4-10.2); Carbon Dioxide 31 mmol/L (22.0-30.0); Chloride 94 mmol/L (98-107); Estimated Glomerular Filt Rate 97 ml/min (>60); GFR (African American) 117 ML/MIN (>60); Globulin 2.9 g/dL (1.3-3.2); Glucose 95 mg/dl (74-100); Potassium 4.5 mmoL/L (3.5-5.1); Sodium 133 mmol/L (136-145); Total Protein,Serum 7.1 g/dl (6.3-8.2)
[2023-11-14 15:10] LABS: Hemoglobin A1C 5.7 % (4.0-6.0)
== END 2023-11-14 23:59 | disposition home or self-care (01) ==
LOC: LAB.DROPOF 15:06
PROVIDERS: PCP Nurse Practitioner Family; Visit Provider Nurse Practitioner Family
DX: E11.65 Type 2 diabetes mellitus with hyperglycemia (principal); Z79.4 Long term (current) use of insulin; M79.89 Other specified soft tissue disorders; Z79.84 Long term (current) use of oral hypoglycemic drugs; Z79.85 Long-term (current) use of injectable non-insulin antidiabetic drugs
CPT/HCPCS: 80053; 83036; 85025

== ENCOUNTER 2023-11-25 15:37 | Outpatient (CLI) | payer MEDICARE, BC, SELFPAY ==
--- NOTE | 2023-11-25 15:38 | MR_ITS ---
FINAL REPORT TECHNIQUE: Multiplanar MRI without gadolinium enhancement CLINICAL HISTORY: instability of right ankle. LATERAL SIDED ANKLE SWELLING FINDINGS: Articular cartilage: Severe thinning of the articular cartilage is noted involving the posterior facet of the subtalar joint. No osteochondral lesions are seen within the ankle joint. Marrow signal: Significant localized marrow edema is seen of the posterior talus and calcaneus abutting the diseased posterior subtalar joint. There are multiple bone fragments posteriorly. There is irregularity and surrounding edema of these bone fragments. Appearance is suggestive of chronic impingement with associated loose bodies. Joint fluid: Small Tendons: No evidence of tear Ligaments: Major ligaments unremarkable Plantar fascia: No evidence of tear or fasciitis. IMPRESSION: 1. 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 No evidence of ligamentous or tendon abnormality Authenticated and [facility]
== END 2023-11-25 23:59 | disposition home or self-care (01) ==
LOC: RAD 15:38
PROVIDERS: PCP Nurse Practitioner Family; Visit Provider Nurse Practitioner Family
DX: M25.371 Other instability, right ankle (principal); M25.471 Effusion, right ankle
CPT/HCPCS: 73721

== ENCOUNTER 2023-11-28 09:43 | Outpatient (CLI) | payer MEDICARE, BC, SELFPAY | END 2023-11-28 23:59 | disposition home or self-care (01) | LOC: LAB.DROPOF 11-29 09:43 | PROVIDERS: PCP Nurse Practitioner Family; Visit Provider Nurse Practitioner Family | DX: R30.0 Dysuria (principal) | CPT/HCPCS: 87086 ==

== ENCOUNTER 2024-02-03 09:40 | Outpatient (CLI) | payer MEDICARE, BC, SELFPAY ==
[2024-02-03 16:07] LABS: Hemoglobin A1C 5.8 % (4.0-6.0)
[2024-02-03 17:16] LABS: Alanine Aminotransferase 19 U/L (12-78); Albumin Level 4.1 g/dl (3.5-5.0); Albumin/Globulin Ratio 1.3 (1.1-1.8); Alkaline Phosphatase 69 U/L (38-126); Anion Gap 13.4 mEq/L (5-15); Aspartate Amino Transferase 30 U/L (14-36); Bilirubin,Total 1.1 mg/dl (0.2-1.3); Blood Urea Nitrogen 9 mg/dl (7-17); Calcium 9.1 mg/dl (8.4-10.2); Carbon Dioxide 27 mmol/L (22.0-30.0); Chloride 97 mmol/L (98-107); Estimated Glomerular Filt Rate 120 ml/min (>60); GFR (African American) 145 ML/MIN (>60); Globulin 3.2 g/dL (1.3-3.2); Glucose 67 mg/dl (74-100); Potassium 4.4 mmoL/L (3.5-5.1); Sodium 133 mmol/L (136-145); Total Protein,Serum 7.3 g/dl (6.3-8.2)
== END 2024-02-03 23:59 | disposition home or self-care (01) ==
LOC: LAB.DROPOF 02-06 09:40
PROVIDERS: PCP Nurse Practitioner Family; Visit Provider Nurse Practitioner Family
DX: E11.65 Type 2 diabetes mellitus with hyperglycemia (principal); Z79.4 Long term (current) use of insulin; E11.9 Type 2 diabetes mellitus without complications; R53.83 Other fatigue
CPT/HCPCS: 80053; 83036

== ENCOUNTER 2024-03-06 15:00 | Outpatient (POV) | payer MEDICARE, BC, SELFPAY | END 2024-03-06 23:59 | disposition home or self-care (01) | LOC: SC 03-07 06:44 | PROVIDERS: Visit Provider Dermatology | DX: Z00.00 Encounter for general adult medical examination without abnormal findings (principal) ==

== ENCOUNTER 2024-03-14 14:50 | Outpatient (CLI) | payer MEDICARE, BC, SELFPAY ==
--- NOTE | 2024-03-14 14:50 | MM_ITS ---
PROCEDURE INFORMATION: Exam: MG Bilateral Screening 3D Mammography Exam date and time: 03/14/2024 2:35 PM Age: 78 years old Clinical indication: Screening examination TECHNIQUE: Imaging protocol: Bilateral Screening tomosynthesis and 2D mammography including computer-aided detection (CAD) when performed. COMPARISON: 1. MG MM DIG SCREENING MAMM BI W/CAD 10/26/2022 10:27 AM 2. MG MM DIG SCREENING MAMM BI W/CAD 08/11/2021 8:09 AM FINDINGS: MAMMOGRAPHY: Breast composition: There are scattered areas of fibroglandular density. Mass: No suspicious masses. Architectural distortion: None. Calcifications: No suspicious calcifications. Asymmetric density: None. Skin thickening: None. Axillary adenopathy: None. IMPRESSION: No mammographic evidence of malignancy. Annual screening is recommended unless otherwise clinically indicated. ASSESSMENT: BI-RADS Category 1: Negative.
== END 2024-03-14 23:59 | disposition home or self-care (01) ==
LOC: RAD 14:50
PROVIDERS: PCP Orthopaedic Surgery; Visit Provider Nurse Practitioner Family
DX: Z12.31 Encounter for screening mammogram for malignant neoplasm of breast (principal)
CPT/HCPCS: 77063; 77067

== ENCOUNTER 2024-07-16 11:00 | Outpatient (CLI) | payer MEDICARE, BC, SELFPAY ==
[2024-07-16 16:42] LABS: Coronavirus 19, PCR Not Detected (NotDetected); Influenza A, PCR Not Detected (NotDetected); Influenza B, PCR Not Detected (NotDetected); Respiratory Syncytial Virus Not Detected (NotDetected)
[2024-07-16 18:19] LABS: Human Rhinovirus Detected (NotDetected)
== END 2024-07-16 23:59 | disposition home or self-care (01) ==
LOC: LAB.DROPOF 07-18 10:55
PROVIDERS: PCP Nurse Practitioner Family; Visit Provider Nurse Practitioner Family
DX: R05.1 Acute cough (principal); R68.89 Other general symptoms and signs
CPT/HCPCS: 87631

== ENCOUNTER 2024-07-23 07:57 | Day surgery (SDC) | payer MEDICARE, BC, SELFPAY ==
[2024-07-23 08:25] VITALS: BP 117/63; PULSE 80; RESP 18; TEMP 36.2; O2SAT 98
[2024-07-23] MEDS: LACTATED RINGERS 1000ML 1,000 ML 50 ML IV (08:29)
--- NOTE | 2024-07-23 09:03 | EXP.ANES.CKL ---
[facility] Disclaimer: The information contained in this section may have been updated after the patient was seen, as this information can be updated by other users. Medical History snf (current) use of insulin Type 2 diabetes mellitus with hyperglycemia Chronic cough Allergic rhinitis, unspecified Surgical History History of umbilical hernia repair History of cataract surgery History of colonoscopy History of knee replacement Hx of cholecystectomy History of section History of tonsillectomy History of myringotomy History of total hip replacement History of carpal tunnel release Family History Other Cancer Coronary artery disease Diabetes Heart attack Hyperlipidemia Hypertension Stroke Social History Smoking Status: Never smoker alcohol intake: never substance use type: denies use current occupational status: retired Travel in the last 8 weeks: None household members: spouse housing: house lives independently: No marital status: education level: college service: No [place] [facility]: No caffeine: Yes special lela needs: No agree to transfusion: No do you feel safe at home: Yes victim of physical abuse: No victim of emotional abuse: No victim of sexual abuse: No would you like helpful sources: No Have you lived/traveled outside [place] in past 30 days?: No Contact w/someone who lives/traveled outside US past 30 days?: No Exposure to someone with infectious disease in past 14 days?: No Do you have a fever (greater than 100.4 F or 38 C)?: No Have you tested positive for COVID-19: No Exposed to someone with COVID-19 in past 14 days?: No Do you have a sore throat?: No Do you have a cough?: No Do you have any weakness?: No Do you have any diarrhea?: No Are you experiencing any unusual bleeding?: No Do you have any muscle aches/pain?: No Do you have any abdominal pain?: No Are you experiencing loss of taste or smell?: No [facility] Anesthesia Checklist Patient Identification Patient Identification: Arm Band Structural Data Admitted From: Home Planned Operative Procedure/s: EGD/Colonoscopy Consent for Planned Operative Procedure(s) Verified: Yes Verified Documents: Surgical Consent and History and Physical NPO Status Verified Time NPO: 05:30 (finished prep) Additional verifications Anesthesia Reactions: No Hx Blood Transfusions: No Blood Transfusion Reaction: No Airway Assessment Mallampati Score:: Class II C-Spine Mobility Assessed: Yes TMJ Mobility Assessed: Yes Dentition: Dentures-good fit (removed) Neurological Assessment Level of Consciousness: Awake, Alert and Appropriate Anesthesia Plan Anesthesia Risk discussed: Yes Anesthesia Plan: Verified ASA Class: III Anesthesia Type: MAC
[2024-07-23 09:26] LABS: POC Glucose,Bedside 86 (70-110)
--- NOTE | 2024-07-23 09:34 | P.HP_ITS ---
History of Present Illness *Admission Date: 07/23/24 *Reason for visit:: Heartburn/reflux/screening colonoscopy *History of present illness: Mrs. Young is a 79-year-old female who is here for EGD secondary to worsening heartburn and reflux and colonoscopy for screening. The examination is deemed medically necessary for EGD and colonoscopy. The patient has been seen, interviewed and examined prior to the procedure by both myself and the anesthesia provider. [facility] Disclaimer: The information contained in this section may have been updated after the patient was seen, as this information can be updated by other users. 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 Type 2 diabetes mellitus with hyperglycemia Chronic cough Allergic rhinitis, unspecified Surgical History History of umbilical hernia repair History of cataract surgery History of colonoscopy History of knee replacement Hx of cholecystectomy History of section History of tonsillectomy History of myringotomy History of total hip replacement History of carpal tunnel release Family History Other Cancer Coronary artery disease Diabetes Heart attack Hyperlipidemia Hypertension Stroke Social History Smoking Status: Never smoker alcohol intake: never substance use type: denies use current occupational status: retired Travel in the last 8 weeks: None household members: spouse housing: house lives independently: No marital status: education level: college service: No long-term: No caffeine: Yes special lela needs: No agree to transfusion: No do you feel safe at home: Yes victim of physical abuse: No victim of emotional abuse: No victim of sexual abuse: No would you like helpful sources: No Have you lived/traveled outside US in past 30 days?: No Contact w/someone who lives/traveled outside US past 30 days?: No Exposure to someone with infectious disease in past 14 days?: No Do you have a fever (greater than 100.4 F or 38 C)?: No Have you tested positive for COVID-19: No Exposed to someone with COVID-19 in past 14 days?: No Do you have a sore throat?: No Do you have a cough?: No Do you have any weakness?: No Do you have any diarrhea?: No Are you experiencing any unusual bleeding?: No Do you have any muscle aches/pain?: No Do you have any abdominal pain?: No Are you experiencing loss of taste or smell?: No Other Medical History Have you received the Flu Vaccine for this season: Yes Have you received the Pneumonia Vaccine: No Review of Systems Review of Systems Review of systems (narrative): Negative *Cardiovascular Comments: Negative *Gastrointestinal Comments: Negative *Genitourinary Comments: Negative *Musculoskeletal Comments: Negative *Neurologic Comments: Negative Meds Home Medications and Allergies Home Medications ?Medication ?Instructions ?Recorded ?Confirmed ?Type calcium 600 mg (as 600 cap PO BID Supplement 08/11/17 07/23/24 History carbonate)-vitamin D3 5 mcg (200 unit) capsule (Calcium 600 + D(3)) meclizine 25 mg tablet 25 mg PO NEEDED 1/2- 1 tab 11/17/17 07/23/24 Rx every 6-8 hrs prn dizziness #30 tabs pen needle, diabetic 32 gauge x #50 ea 06/20/20 07/23/24 History cetirizine 10 mg tablet (Zyrtec) 10 mg PO DAILY PRN allergy 05/26/21 07/23/24 Rx symptoms #30 tabs tolterodine 4 mg capsule,extended 4 mg PO DAILY bladder 12/27/22 07/23/24 History release 24 hr (Detrol LA) bimatoprost 0.01 % eye drops 1 drp Eye-Both HS 04/25/23 07/23/24 History (Mary) levothyroxine 75 mcg tablet 75 mcg PO DAILY #90 tabs 07/21/23 07/23/24 Rx blood sugar diagnostic (Accu-Chek #300 ea 09/23/23 07/23/24 Rx Guide test strips) blood-glucose meter (Accu-Chek #1 ea 09/23/23 07/23/24 Rx Guide Glucose Meter) lancets (Accu-Chek Softclix #300 ea 09/23/23 07/23/24 Rx Lancets) ferrous sulfate 325 mg (65 mg See Rx Instructions .Route 01/23/24 07/23/24 Rx iron) tablet (FeroSul) .COMPLEX #120 tabs metformin 1,000 mg tablet See Rx Instructions .Route 01/23/24 07/23/24 Rx .COMPLEX #240 tabs losartan 100 mg tablet 100 mg PO DAILY 90 days #90 tabs 02/29/24 07/23/24 Rx nortriptyline 25 mg capsule 25 mg PO HS leg pain #90 caps 02/29/24 07/23/24 Rx triamcinolone acetonide 0.1 % See Rx Instructions .Route 03/06/24 07/23/24 Rx topical ointment .COMPLEX #80 grams citalopram 10 mg tablet 10 mg PO DAILY 90 days #90 tabs 03/30/24 07/23/24 Rx ezetimibe 10 mg tablet (Zetia) 10 mg PO DAILY Cholesterol 90 days 03/30/24 07/23/24 Rx #90 tabs furosemide 20 mg tablet See Rx Instructions .Route 03/30/24 07/23/24 Rx .COMPLEX 90 days #90 tabs metoprolol succinate 25 mg See Rx Instructions .Route 06/25/24 07/23/24 Rx tablet,extended release 24 hr .COMPLEX #90 tabs omeprazole 40 mg capsule,delayed See Rx Instructions .Route 06/25/24 07/23/24 Rx release .COMPLEX #90 caps insulin degludec 200 unit/mL (3 48 unit (0.24 mL) SQ HS 90 days 07/16/24 07/23/24 Rx mL) subcutaneous pen (Tresiba #21.6 mL FlexTouch U-200 insulin) tirzepatide 2.5 mg/0.5 mL 2.5 mg (0.5 mL) SQ WEEKLY #2.5 mL 07/16/24 07/23/24 Rx subcutaneous pen injector (Renetta) New Prescriptions to Start Prescriptions: Allergies Allergy/AdvReac Type Severity Reaction Status Date / Time hydrocodone (HYDROCODONE) Allergy Intermediate I-ITCHING Verified 07/23/24 08:24 morphine (MORPHINE) Allergy Intermediate I-ITCHING Verified 07/23/24 08:24 propoxyphene (From DARVON) Allergy Unknown HEAVY Verified 07/23/24 08:24 SEDATION Exam Data for Last 24 hours Vital signs and Labs for Last 24 Hours: Temp Pulse Resp BP Pulse Ox O2 Del Method 97.1 F L 80 18 117/63 98 Room Air 07/23/24 08:25 07/23/24 08:25 07/23/24 08:25 07/23/24 08:25 07/23/24 08:25 07/23/24 08:25 Laboratory Results - last 24 hr 07/23/24 08:36: POC Glucose 86 *Routine HEENT Exam Head: Present normocephalic Eye: Present EOMI and PERRL ENT: Present mucous membranes moist *Routine Neck Exam Neck: Present supple *Routine Respiratory Exam Respiratory: Present CTA bilaterally *Routine Cardiovascular Exam Cardiovascular: Present RRR *Routine Abdominal Exam Abdominal: Present soft and normoactive bowel sounds; Absent tenderness *Routine Rectal Exam Rectal:: deferred *Routine Genitalia Exam Genitalia:: deferred *Routine Extremities Exam Extremities: Absent cyanosis, clubbing or edema *Routine Skin Exam Skin: Present warm; Absent rash *Routine Neurological Exam Neurological: Present alert and oriented X3 Assessment and Plan *Assessment and plan (1) Heartburn: Status: Acute Category: Medical Code(s): R12 - Heartburn (2) Acid reflux: Status: Acute Category: Medical Code(s): K21.9 - Gastro-esophageal reflux disease without esophagitis (3) Regurgitation of food: Status: Acute Category: Medical Code(s): R11.10 - Vomiting, unspecified (4) Early satiety: Status: Acute Category: Medical Code(s): R68.81 - Early satiety (5) Family history of colon cancer: Status: Acute Category: Medical Code(s): Z80.0 - Family history of malignant neoplasm of digestive organs (6) History of colon polyps: Status: Acute Category: Medical Code(s): Z86.0100 - Personal history of colon polyps, unspecified Plan A/P: 1. Heartburn/reflux with regurgitation of food for upper endoscopy and screening/surveillance (former history of polyps and family history of colon cancer) for colonoscopy is the preprocedural diagnosis. The patient will be anesthetized/sedated using MAC sedation. The patient has been seen and examined. Cardiac and lung assessment prior to the examination is stable. Proceed with planned EGD and colonoscopy
[2024-07-23 09:41] VITALS: O2SAT 98
--- NOTE | 2024-07-23 09:43 | P.PCN_ITS ---
[facility] Procedure Note Date: 07/23/24 Time: 09:52 Procedure Note:: Upper Endoscopy Procedure Report: Esophagogastroduodenoscopy with cold biopsies Endoscopost: Piotr Callahan II, MD Referring Physician: DANILO Goncalves Date of Procedure: July 23, 2024 Equipment: Olympus GIF 190 standard upper endoscope Sedation: MAC sedation Indications: Mrs. Young is a 79-year-old female with some worsening heartburn and reflux. She has had this for years and is on omeprazole 40 mg daily. She is additionally use gas pills. She does report bloating, early satiety, nausea and supine reflux. Sometimes she will have choking with aspiration when lying down. She also has noted some food regurgitation occasionally. She has been on Mounjaro. The patient does report regular bowel function but does have some incomplete bowel evacuation. She previously had iron deficiency but her recent hemoglobin hematocrit are normal. Procedure: Prior to the procedure, a history and physical exam was performed, and patient's medications and allergies were reviewed. The risks, benefits and alternatives of the sedation and procedure were discussed with the patient. All questions were answered and informed consent was obtained. The patient was brought to the procedure room. Patient identification and proposed procedure were verified by the physician and the nurse. The patient was placed in a left lateral decubitus position and the scope was passed under direct vision. Throughout the procedure, the patient's blood pressure, pulse, and oxygen saturations were monitored continuously. The upper GI endoscopy was accomplished without difficulty. The patient tolerated the procedure well. Findings: The scope was passed directly into the upper esophagus and advanced to the third portion of the duodenum. The post bulbar duodenum, ampulla and duodenal bulb were normal with normal mucosa and conniventes. The scope was withdrawn through a normal duodenal bulb and pylorus into the stomach. There was some linear reactive gastropathy of the antrum. There was a reticular/mosaic pattern with erythema in the body and fundus (H. pylori versus portal gastropathy) and biopsies were taken along the lesser curvature. Upon retroflexion there was a small 2 cm hiatal hernia. The scope was then withdrawn into the esophagus. There was no evidence of reflux esophagitis or Olson's. There were grade 1 esophageal varices without stigmata. The remainder of the esophageal mucosa was normal. Impression: 1. Nonerosive GERD with mild esophageal dysmotility and small 2 cm hiatal hernia 2. Grade 1 esophageal varices 3. Mild chronic gastritis and mild antral gastropathy Plan: I will follow-up the biopsies to rule out H. pylori. Certainly her mosaic/reticular gastric pattern may be some early portal gastropathy. I am going to obtain liver ultrasound and fibrotic markers to rule out hepatic fibrosis and portal hypertension. We will discuss additional treatment options for her heartburn and reflux. I will proceed with colonoscopy.
--- NOTE | 2024-07-23 09:56 | US_ITS ---
FINAL REPORT TECHNIQUE: Multiple transverse and longitudinal images CLINICAL HISTORY: Portal hypertension/rule out cirrhosis COMPARISON: None FINDINGS: The gallbladder has been surgically resected. No biliary ductal dilatation is appreciated. No fluid collections are seen. The liver is hyperechoic, which may represent fatty infiltration or cirrhosis. The portal vein is patent and mildly enlarged, which raises the question of portal hypertension. The portal vein measures up to 14 mm in diameter. No evidence of ascites is seen. Limited portions of the right kidney are unremarkable. IMPRESSION: Hyperechoic liver, fatty infiltration or cirrhosis. Mildly enlarged portal vein as described. Prior cholecystectomy. Reviewed, Interpreted and Dictated by Arianna Man MD Transcribed by Marion Pendleton Authenticated and [facility]
--- NOTE | 2024-07-23 10:02 | P.PCN_ITS ---
[facility] Procedure Note Date: 07/23/24 Time: 10:02 Procedure Note:: Attempted/aborted colonoscopy Procedure Report: Flexible sigmoidoscopy to splenic flexure Endoscopist: Piotr Callahan II, MD Referring physician: DANILO Goncalves Date of Procedure: July 23, 2024 Equipment: Olympus 190 variable stiffness pediatric colonoscope Sedation: MAC sedation Indication: Mrs. Young is a 79-year-old female here for follow-up surveillance colonoscopy. The patient does state that her grandfather had colon cancer in his 80s. Her maternal uncle was diagnosed with colon cancer in his 50s. Her mother, sister and son have had colon polyps. The patient did have a colonoscopy with Cole Zavala M.D. and December 2022 and had a single polyp (tubular adenoma) removed at the hepatic flexure. The patient's last colonoscopy with was in September 2017 and at that time she had a single hyperplastic polyp removed.The patient does report regular bowel function but does have some incomplete bowel evacuation. She previously had iron deficiency but her recent hemoglobin hematocrit are normal. Procedure: Prior to the procedure, a history and physical exam was performed, and patient's medications and allergies were reviewed. The risks, benefits and alternatives of the sedation and procedure were discussed with the patient. All questions were answered and informed consent was obtained. The patient was brought to the procedure room. Patient identification and proposed procedure were verified by the physician and the nurse. The patient was placed in a left lateral decubitus position and the scope was passed under direct vision. Throughout the procedure, the patient's blood pressure, pulse, and oxygen saturations were monitored continuously. The colonoscopy was accomplished without difficulty. The patient tolerated the procedure well. Findings: On digital rectal examination there was normal rectal tone. There were no external hemorrhoids. The scope was then inserted through the anal canal to the rectum and advanced to the splenic flexure. There was an abundant amount of liquid and some semisolid stool proximally but also within the left colon. This did significantly impair visualization and the procedure was thus aborted due to poor bowel preparation. There were scattered diverticuli in the descending and sigmoid colon. Upon retroflexion within the rectum there were grade 1-2 internal hemorrhoids. Impression: 1. Poorly prepped colon?procedure aborted Plan: I was able to visualize to the splenic flexure. I am not convinced that she needs repeat surveillance colonoscopy since last colonoscopy was December 2022. I would encourage a fiber bowel regimen daily.
[2024-07-23 10:05] VITALS: BP 95/56; PULSE 78; RESP 15; TEMP 36.4; O2SAT 95
[2024-07-23 10:15] VITALS: BP 104/61; PULSE 78; RESP 16; O2SAT 96
[2024-07-23 10:25] VITALS: BP 119/72; PULSE 80; RESP 18; O2SAT 97
[2024-07-23 10:35] VITALS: BP 123/74; PULSE 76; RESP 18; O2SAT 95
[2024-07-26 01:12] LABS: ALT (SGPT) P5P 13 IU/L (0-40); AST (SGOT) P5P 28 IU/L (0-40); Alpha 2-Macroglobulins, Qn 267 mg/dL (110-276); Apolipoprotein A-1 103 mg/dL (116-209); Bilirubin, Total 0.6 mg/dL (0.0-1.2); Cholesterol, Total 109 mg/dL (100-199); GGT 13 IU/L (0-60); Glucose 116 mg/dL (70-99); Haptoglobin 152 mg/dL (42-346); Steatosis Score 0.47 (0.00-0.40); Triglycerides 116 mg/dL (0-149)
== END 2024-07-23 10:57 | disposition home or self-care (01) ==
PROVIDERS: PCP Nurse Practitioner Family; Visit Provider Internal Medicine Gastroenterology
PROC: 0DJ08ZZ Inspection of Upper Intestinal Tract, Via Natural or Artificial Opening Endoscopic (ICD-10-PCS; CPT 45378; principal; 2024-07-23 09:30)
DX: K22.4 Dyskinesia of esophagus (principal); K44.9 Diaphragmatic hernia without obstruction or gangrene; K29.70 Gastritis, unspecified, without bleeding; K31.9 Disease of stomach and duodenum, unspecified; I85.00 Esophageal varices without bleeding; K57.30 Diverticulosis of large intestine without perforation or abscess without bleeding; K64.8 Other hemorrhoids; R12 Heartburn; K21.9 Gastro-esophageal reflux disease without esophagitis; R11.10 Vomiting, unspecified; R68.81 Early satiety; Z80.0 Family history of malignant neoplasm of digestive organs; Z86.0100 Personal history of colon polyps, unspecified; Z12.11 Encounter for screening for malignant neoplasm of colon; E11.65 Type 2 diabetes mellitus with hyperglycemia; Z79.84 Long term (current) use of oral hypoglycemic drugs
CPT/HCPCS: 43239; G0121; 36415; 76705; 82962; J7120

== ENCOUNTER 2024-07-30 12:41 | Outpatient (CLI) | payer MEDICARE, BC, SELFPAY | END 2024-07-30 23:59 | disposition home or self-care (01) | LOC: LAB.DROPOF 08-01 13:35 | PROVIDERS: PCP Student in an Organized Health Care Education/Training Program; Visit Provider Student in an Organized Health Care Education/Training Program | DX: N39.0 Urinary tract infection, site not specified (principal) | CPT/HCPCS: 87086; 87088; 87186 ==

== ENCOUNTER 2024-08-20 09:43 | Outpatient (CLI) | payer MEDICARE, BC, SELFPAY ==
[2024-08-20 11:15] LABS: Basophils % 0.5 % (0.1-2.0); Eosinophils # 0.1 K/mm3 (0.0-0.4); Eosinophils % 0.8 % (0.1-12.0); Hematocrit 42.3 % (37.0-47.0); Hemoglobin 13.5 g/dL (12.2-16.2); Lymphocytes # 1.6 K/mm3 (0.7-4.5); Lymphocytes % 18.9 % (10-50); Mean Corpuscular HGB Conc 31.9 g/dL (31.8-35.4); Mean Corpuscular Volume 78.3 fl (81-99); Mean Platelet Volume 9.9 fl (7.4-10.4); Monocytes # 0.5 K/mm3 (0.1-1.0); Monocytes % 5.6 % (1.7-9.3); Neutrophils # 6.4 K/mm3 (1.8-7.8); Neutrophils % 73.6 % (37.0-80.0); Platelet Count 250 K/mm3 (142-424); Red Cell Distribution Width 17.1 % (11.5-17.5); White Blood Count 8.6 K/mm3 (4.8-10.8)
[2024-08-20 11:30] LABS: Albumin Level 4.4 g/dl (3.5-5.0); Chloride 97 mmol/L (98-107); Potassium 3.8 mmoL/L (3.5-5.1); Sodium 134 mmol/L (136-145)
[2024-08-20 11:33] LABS: Iron 45 ug/dL (37-170)
[2024-08-20 11:34] LABS: Alanine Aminotransferase 15 U/L (12-78); Albumin/Globulin Ratio 1.7 (1.1-1.8); Alkaline Phosphatase 54 U/L (38-126); Anion Gap 11.9 mEq/L (5-15); Aspartate Amino Transferase 27 U/L (14-36); Bilirubin,Total 0.7 mg/dl (0.2-1.3); Blood Urea Nitrogen 5 mg/dl (7-17); Calcium 9.9 mg/dl (8.4-10.2); Carbon Dioxide 31 mmol/L (22.0-30.0); Estimated Glomerular Filt Rate 119 ml/min (>60); GFR (African American) 144 ML/MIN (>60); Globulin 2.5 g/dL (1.3-3.2); Glucose 81 mg/dl (74-100); Total Protein,Serum 6.8 g/dl (6.3-8.2)
[2024-08-20 12:06] LABS: Total Iron Binding Capacity 414 ug/dL (265-497)
== END 2024-08-20 23:59 | disposition home or self-care (01) ==
LOC: LAB 09:44
PROVIDERS: PCP Nurse Practitioner Family; Visit Provider Nurse Practitioner Family
DX: K75.81 Nonalcoholic steatohepatitis (NASH) (principal)
CPT/HCPCS: 36415; 80053; 82728; 83540; 83550; 85025

== ENCOUNTER 2024-11-02 16:52 | Outpatient (CLI) | payer MEDICARE, BC, SELFPAY ==
--- OUTSIDE RECORDS SUMMARY | 2024-11-02 16:55 | XMS_ITS | Clinical Summary ---
Author Organization [facility] Address [address] [place] [address] Care Team Providers Care Wrapper Sizer Name Role Phone Mauri Esquivel MD Primary Care Provider [phone] Family History Medical History Relation Name Comments Allergic rhinitis Father Cardiac disorder Father Conversions - Other Father Hearing deficit Coronary artery disease Father Diabetes Father Hypertension Father Diabetes Mother Hypertension Mother Melanoma Mother Relation Name Status Comments Father Mother Social History Tobacco Use Types Packs/Day Years Used Date Smoking Tobacco: Former Alcohol Use Standard Drinks/Week Comments No 0 (1 standard drink = 0.6 oz pur e alcohol) Comments Unknown Sex and Gender Information Value Date Recorded Sex Assigned at Not on file Legal Sex Female 7:31 PM EDT Gender Identity Not on file Sexual Orientation Not on file Last Filed Vital Signs Vital Sign Reading Time Taken Comments Blood Pressure - - Pulse - - Temperature - - Respiratory Rate - - Oxygen Saturation - - Inhaled Oxygen Concentration - - Weight 104 kg (230 lb 0.1 oz) 09/29/2016 10:25 A M EDT Height 162.6 cm (5' 4 ) 09/29/2016 10:25 AM EDT Body Mass Index 39.48 09/29/2016 10:25 AM EDT Plan of Treatment Health Maintenance Due Date Last Done Comments [facility]-Bone Density Scan 1945 [facility]-Depression Screening 1945 [facility]-/Child/Adol SDOH Screenings 1945 [facility]- SDOH Screenings 1964 [facility]Y-Adult SDOH Screenings 1964 [facility]Y-DTaP,Tdap,and Td Vaccines (1 - Tdap) 1965 [facility]Y-Zoster Vaccines (1 of 2) 1996 [facility]Y-Pneumococcal Vaccine: 50+ Years (2 of 2 - PCV) 03/09/2017 03/09/2016 [facility]Y-RSV Vaccine: 60+ Years or (1 - 1-dose 75+ series) 2021 [id number] Vaccine ( - season) 2024 07/10/2021, 09/10/2020, 08/13/2020 [facility]Y-Influenza Vaccine (Season Ended) 2025 05/15/2021, 04/03/2020, 03/03/2010 HPV Vaccines Aged Out No longer eligi ble based on patient's age to complete this topic UKY-HIB Vaccines Aged Out No longer e ligible based on patient's age to complete this topic UKY-Hepatitis A Vaccines Aged Out No longer eligible based on patient's age to complete this topic UKY-IPV Vaccines Aged Out No longer e ligible based on patient's age to complete this topic UKY-Rotavirus Vaccines Aged Out No lo nger eligible based on patient's age to complete this topic Insurance MEDICARE [facility] Care Teams Wrapper Sizer Relationship Specialty Start Date End Date Mauri Esquivel MD [address] [place] [address] #1 [address]1 [place] [id number] PCP - General 09/17/22
[2024-11-02 17:02] LABS: Basophils % 0.4 % (0.1-2.0); Eosinophils # 0.1 Kmm3 (0.0-0.4); Hematocrit 39.5 % (37.0-47.0); Hemoglobin 12.9 g/dL (12.2-16.2); Immature Granulocytes # 0.04 10^3uL; Immature Granulocytes % 0.5 %; Lymphocytes # 1.9 K/mm3 (0.7-4.5); Lymphocytes % 23.3 % (10-50); Mean Corpuscular HGB Conc 32.7 g/dL (31.8-35.4); Mean Corpuscular Hemoglobin 25.6 pg (27.0-31.2); Mean Corpuscular Volume 78.4 fl (81-99); Mean Platelet Volume 10.3 fl (7.4-10.4); Monocytes # 0.4 K/mm3 (0.1-1.0); Monocytes % 4.6 % (1.7-9.3); Neutrophils # 5.6 K/mm3 (1.8-7.8); Neutrophils % 70.2 % (37.0-80.0); Nucleated Red Blood Cells # 0 10^3/uL; Nucleated Red Blood Cells % 0 %; Platelet Count 252 K/mm3 (142-424); Red Blood Count 5.04 M/mm3 (4.20-5.40); Red Cell Distribution Width 16.5 % (11.5-17.5); Red Cell Distribution Width-SD 46.5 fL
[2024-11-02 17:25] LABS: Alanine Aminotransferase 13 U/L (12-78); Albumin Level 3.9 g/dl (3.5-5.0); Albumin/Globulin Ratio 1.5 (1.1-1.8); Alkaline Phosphatase 67 U/L (38-126); Anion Gap 9.7 mEq/L (5-15); Aspartate Amino Transferase 30 U/L (14-36); Bilirubin,Total 1.2 mg/dl (0.2-1.3); Blood Urea Nitrogen 7 mg/dl (7-17); Calcium 8.9 mg/dl (8.4-10.2); Carbon Dioxide 27 mmol/L (22.0-30.0); Chloride 92 mmol/L (98-107); Estimated Glomerular Filt Rate 97 ml/min (>60); GFR (African American) 117 ML/MIN (>60); Globulin 2.6 g/dL (1.3-3.2); Glucose 83 mg/dl (74-100); Potassium 4.7 mmoL/L (3.5-5.1); Sodium 124 mmol/L (136-145); Total Protein,Serum 6.5 g/dl (6.3-8.2)
[2024-11-02 17:50] LABS: Hemoglobin A1C 5.5 % (4.0-6.0)
[2024-11-02 18:00] LABS: Ferritin 10.3 ng/ml (11.1-264)
== END 2024-11-02 23:59 | disposition home or self-care (01) ==
LOC: LAB.DROPOF 16:52
PROVIDERS: PCP Nurse Practitioner Family; Visit Provider Nurse Practitioner Family
DX: E11.65 Type 2 diabetes mellitus with hyperglycemia (principal); Z79.4 Long term (current) use of insulin; D50.9 Iron deficiency anemia, unspecified
CPT/HCPCS: 80053; 82728; 83036; 85025

== ENCOUNTER 2024-12-14 10:06 | Outpatient (CLI) | payer MEDICARE, BC, SELFPAY ==
--- NOTE | 2024-12-14 10:09 | XR_ITS ---
FINAL REPORT CLINICAL HISTORY: Fall/ Injury Pain 2nd mcp joint COMPARISON: None FINDINGS: RIGHT HAND Two views demonstrate no acute fracture or dislocation.. 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 There are moderate degenerative changes of the DIP joints. Osteopenia is noted. No acute soft tissue abnormality is seen. IMPRESSION: No acute bony abnormality. Reviewed, Interpreted and Dictated by Arianna Man MD Transcribed by Maria Luisa Flores Authenticated and [facility]
--- OUTSIDE RECORDS SUMMARY | 2024-12-14 10:14 | XMS_ITS | Clinical Summary ---
Author Organization [facility] Address [address] [place] [address] Care Team Providers Care Email Marketing Manager Name Role Phone Mauri Esquivel MD Primary Care Provider [phone] Family History Medical History Relation Name Comments [...] [facility]Y-Bone Density Scan 1945 [facility]-Depression Screening 1945 [facility]-Infant/Child/Adol SDOH Screenings 1945 [facility]- SDOH Screenings 1964 [facility]-Adult SDOH Screenings 1964 [facility]-DTaP,Tdap,and Td Vaccines (1 - Tdap) 1965 [facility]Y-Zoster Vaccines (1 of 2) 1996 [facility]-Pneumococcal Vaccine: 50+ Years (2 of 2 - PCV) 03/09/2017 03/09/2016 [facility]-RSV Vaccine: 60+ Years or (1 - 1-dose 75+ series) 2021 [id number] Vaccine (4 - 2023- season) 2024 07/10/2021, 09/10/2020, 08/13/2020 [facility]-Influenza Vaccine (#1) 01/28/202505/15, 04/03/2020, 03/03/2010 HPV Vaccines Aged Out No [...] age to complete this topic Insurance MEDICARE [facility] Care Teams Email Marketing Manager Relationship Specialty Start Date End Date Mauri Esquivel MD [address] [place] [address] #1 [address]1 [place] [id number] PCP - General 09/17/22
== END 2024-12-14 23:59 | disposition home or self-care (01) ==
LOC: RAD 10:07
PROVIDERS: PCP Nurse Practitioner Family; Visit Provider Internal Medicine
DX: S69.91XA Unspecified injury of right wrist, hand and finger(s), initial encounter (principal); M18.12 Unilateral primary osteoarthritis of first carpometacarpal joint, left hand; M19.042 Primary osteoarthritis, left hand; M85.842 Other specified disorders of bone density and structure, left hand; W19.XXXA Unspecified fall, initial encounter
CPT/HCPCS: 73120

== ENCOUNTER 2024-12-31 14:44 | Outpatient (CLI) | payer MEDICARE, BC, SELFPAY ==
[2024-12-31 17:47] LABS: Microscopic, Urine URINE MICROSCOPIC (MICROSCOPIC)
[2024-12-31 18:19] LABS: Hematocrit 44.0 % (37.0-47.0); Hemoglobin 14.5 g/dL (12.2-16.2); Immature Granulocytes % 0.6 %; Mean Corpuscular HGB Conc 33.0 g/dL (31.8-35.4); Mean Corpuscular Hemoglobin 26.8 pg (27.0-31.2); Mean Corpuscular Volume 81.2 fl (81-99); Nucleated Red Blood Cells % 0 %; Platelet Count 311 K/mm3 (142-424); Red Blood Count 5.42 M/mm3 (4.20-5.40); Red Cell Distribution Width-SD 47.0 fL; White Blood Count 11.3 K/mm3 (4.8-10.8)
[2024-12-31 18:35] LABS: Bilirubin,Urine Negative (Negative); Color,Urine YELLOW (Yellow); Glucose,Urine (UA) Negative (Negative); Ketones,Urine Negative (Negative); Leukocyte Esterase,Urine Negative (Negative); PH,Urine 7.0 (5.0-8.5); Protein,Urine Negative (Negative); Specific Gravity, Urine 1.010 (1.005-1.030); Urobilinogen,Urine 0.2 EU/dl (0.2)
[2024-12-31 19:08] LABS: Hemoglobin A1C 4.9 % (4.0-6.0)
[2024-12-31 19:32] LABS: Alanine Aminotransferase 14 U/L (12-78); Albumin Level 4.4 g/dl (3.5-5.0); Albumin/Globulin Ratio 1.8 (1.1-1.8); Alkaline Phosphatase 72 U/L (38-126); Anion Gap 13.7 mEq/L (5-15); Aspartate Amino Transferase 34 U/L (14-36); Bilirubin,Total 1.0 mg/dl (0.2-1.3); Blood Urea Nitrogen 5 mg/dl (7-17); Calcium 9.7 mg/dl (8.4-10.2); Carbon Dioxide 27 mmol/L (22.0-30.0); Chloride 89 mmol/L (98-107); Cholesterol 133 mg/dl (140-200); Creatinine,Serum 0.50 mg/dl (0.52-1.04); Estimated Glomerular Filt Rate 119 ml/min (>60); GFR (African American) 144 ML/MIN (>60); Globulin 2.5 g/dL (1.3-3.2); Glucose 81 mg/dl (74-100); HDL Cholesterol 39 mg/dl (40-60); Magnesium 1.4 mg/dl (1.6-2.3); Potassium 4.7 mmoL/L (3.5-5.1); Sodium 125 mmol/L (136-145); Total Protein,Serum 6.9 g/dl (6.3-8.2); Triglycerides 142 mg/dl (30-150)
[2024-12-31 19:44] LABS: C-Reactive Protein 9.3 mg/L (0-4)
[2024-12-31 20:02] LABS: Thyroid Stimulating Hormone 0.55 uIU/mL (0.465-4.68)
[2024-12-31 20:08] LABS: Ferritin 12.3 ng/ml (11.1-264)
[2024-12-31 20:21] LABS: Vitamin B12 279 pg/mL (239-931)
[2024-12-31 20:31] LABS: Bacteria,Urine Trace /lpf; Hyaline Casts,Urine OCC #/lpf (0)
--- OUTSIDE RECORDS SUMMARY | 2025-01-01 12:29 | XMS_ITS | Clinical Summary ---
Author Organization [facility] Address [address] [place] [address] Care Team Providers Care Production Laborer Name Role Phone Mauri Esquivel MD Primary Care Provider [phone] Family History Medical History Relation Name Comments [...] or (1 - 1-dose 75+ series) 2021 [id number] Vaccine (4 - 2023- season) 2024 07/10/2021, [...] age to complete this topic Insurance MEDICARE [facility] Care Teams Production Laborer Relationship Specialty Start Date End Date Mauri Esquivel MD [address] [place] [address] #1 #1 [place] [id number] PCP - General 09/17/22
== END 2024-12-31 23:59 | disposition home or self-care (01) ==
LOC: LAB.DROPOF 01-01 12:27
PROVIDERS: PCP Nurse Practitioner Family; Visit Provider Nurse Practitioner Family
DX: E11.65 Type 2 diabetes mellitus with hyperglycemia (principal); D50.9 Iron deficiency anemia, unspecified; Z79.4 Long term (current) use of insulin
CPT/HCPCS: 80053; 80061; 81001; 82043; 82570; 82607; 82728; 83036; 83735; 84443; 85025; 86140

== ENCOUNTER 2025-02-22 10:40 | Outpatient (CLI) | payer MEDICARE, BC, SELFPAY ==
--- OUTSIDE RECORDS SUMMARY | 2025-02-22 10:44 | XMS_ITS | Clinical Summary ---
Author Organization [facility] Address [address] [place] [address] Care Team Providers Care Cutting Table Operator First Name Role Phone Mauri Esquivel MD Primary Care Provider [phone] Family History Medical History Relation Name Comments [...] or (1 - 1-dose 75+ series) 2021 [id number] Vaccine (4 - 2024- season) 2025 07/10/2021, 09/10/2020, 08/13/2020 [facility]-Influenza Vaccine (#1) 01/28/202505/15, [...] age to complete this topic Insurance MEDICARE [facility] Care Teams Cutting Table Operator First Relationship Specialty Start Date End Date Mauri Esquivel MD [address] [place] [address] #1 [address]1 [place] [id number] PCP - General 09/17/22
--- OUTSIDE RECORDS SUMMARY | 2025-02-22 10:44 | XMS_ITS | Data Portability ---
Author Organization [place] - [facility] - [place] [facility] [place] Alejandro ADMIN Address [address] [place] [id number] Assessment No assessment recorded. Plan of Treatment Reminders Order Date Submit Date Provider Last Modified By Organization Details Last Modified Time Details Appointments OV EST 15 2025 11:00A M Clement Anguiano Jr, MD Not available Not available Not available Lab urinalysi s, dipstick [address], [address], 06/25/2024 14:05:01 urinalysi s, dipstick [address], [address], 07/18/2023 09:19:22 Referral None recorded. Procedures None recorded. Surgeries None recorded. Imaging None recorded. Medication Orders cephalexi n 250 mg capsule 2024 025 [facility], [address] [place] [address], [id number], 11/23/2024 13:24:13 tolterodi ne ER 4 mg capsule,e xtended release 24 hr 2024 025 [facility], [address] [place] [address] E [facility] [address] [place] [address], [id number], 11/23/2024 13:24:13 cephalexi n 250 mg capsule 2023 024 SHANI[facility], [address] [facility] [address], [place], [address], 07/15/2023 16:49:17 tolterodi ne ER 4 mg capsule,e xtended release 24 hr 2023 024 [facility], [address] [place] [address], [facility], [place], [address], 07/15/2023 16:49:18 Keflex 250 mg capsule 2022 023 [facility], [address] [place] [address], [facility], [place], [address], 2022 20:16:13 tolterodi ne ER 4 mg capsule,e xtended release 24 hr 2022 023 [facility], [address] [place] [address], [facility] [address], [place], [address], 2022 14:47:10 Patient TargetsNo targets recorded. Patient InstructionsNo instructions recorded. Reason for Referral None Reported. Results Created Date Observation Date Name Description Value Unit Range Abnormal Flag Note LastModifiedBy Organization Detail LastModifiedTime 07/15/19 24 07/15/2023 urina lysis , dipst ick Leukocytes (reference range) negati ve Not Available [facility] [address], [address], 07/15/2023 11:02:36 07/15/19 24 07/15/2023 urina lysis , dipst ick Nitrite (reference range:) negati ve Not Available [facility] [address], [address], 07/15/2023 11:02:36 07/15/19 24 07/15/2023 urina lysis , dipst ick Urobilinogen (reference range) 0.2 Not Available [facility] [address], [address], 07/15/2023 11:02:36 07/15/19 24 07/15/2023 urina lysis , dipst ick Protein (reference range) negati ve Not Available [address], [address], 07/15/2023 11:02:36 07/15/19 24 07/15/2023 urina lysis , dipst ick pH (reference range 5-8.5) 6.5 Not Available [address], [address], 07/15/2023 11:02:36 07/15/19 24 07/15/2023 urina lysis , dipst ick Blood (reference range:) negati ve Not Available [address], [address], 07/15/2023 11:02:36 07/15/19 24 07/15/2023 urina lysis , dipst ick Specific [place] (reference range) 1.010 Not Available [address], [address], 07/15/2023 11:02:36 07/15/19 24 07/15/2023 urina lysis , dipst ick Ketone (reference range) negati ve Not Available [address], [address], 07/15/2023 11:02:36 07/15/19 24 07/15/2023 urina lysis , dipst ick Bilirubin (reference range) negati ve Not Available [address], [address], 07/15/2023 11:02:36 07/15/19 24 07/15/2023 urina lysis , dipst ick Glucose (reference range) negati ve Not Available [address], [address], 07/15/2023 11:02:36 06/22/19 25 06/22/2024 urina lysis , dipst ick Leukocytes (reference range) negati ve Not Available [address], [address], 06/22/2024 11:16:10 06/22/19 25 06/22/2024 urina lysis , dipst ick Nitrite (reference range:) negati ve Not Available [address], [address], 06/22/2024 11:16:10 06/22/19 25 06/22/2024 urina lysis , dipst ick Urobilinogen (reference range) 0.2 Not Available [address], [address], 06/22/2024 11:16:10 06/22/19 25 06/22/2024 urina lysis , dipst ick Protein (reference range) negati ve Not Available [address], [address], 06/22/2024 11:16:10 06/22/19 25 06/22/2024 urina lysis , dipst ick pH (reference range 5-8.5) 5.5 Not Available [address], [address], 06/22/2024 11:16:10 06/22/19 25 06/22/2024 urina lysis , dipst ick Blood (reference range:) negati ve Not Available [address], [address], 06/22/2024 11:16:10 06/22/19 25 06/22/2024 urina lysis , dipst ick Specific [place] (reference range) 1.015 Not Available [address], [address], 06/22/2024 11:16:10 06/22/19 25 06/22/2024 urina lysis , dipst ick Ketone (reference range) negati ve Not Available [address], [address], 06/22/2024 11:16:10 06/22/19 25 06/22/2024 urina lysis , dipst ick Bilirubin (reference range) negati ve Not Available [address], [address], 06/22/2024 11:16:10 06/22/19 25 06/22/2024 urina lysis , dipst ick Glucose (reference range) negati ve Not Available [address], [address], 06/22/2024 11:16:10 06/22/19 25 06/22/2024 urina lysis , dipst ick Color (reference range: yellow-brown ) Yellow Not Available [address], [address], 06/22/2024 11:16:10 Result Notes None recorded. Problems Name Problem SNOMED Code Status Onset Date Resolution Date Notes Provider Name and Address Organization Details Recorded Time Hypertensive disorder 35200641 Active 2022 Nancy hayden, [place] - [facility] - [place] [facility] [place] 3 14:21:00 Diabetes mellitus 78792217 Active 2022 Nancy hayden, [place] - [facility] - [place] [facility] [place] 3 14:21:14 Hypercholester olemia 28820942 Active 2022 Nancy hayden, [place] - [facility] - [place] & [place] 3 14:21:29 Sleep apnea 67485496 Active 2022 Nancy hayden, [place] - [facility] [place] [facility] [place] 3 14:21:49 Gastroesophage al reflux disease 992898537 Active 2022 Nancy hayden, [place] - [facility] [place] [facility] [place] 3 14:21:57 Glaucoma 25703931 Active 2022 Nancy hayden, [place] - [facility] [place] [facility] [place] 3 14:22:16 Arthritis 3632201 Active 2022 Nancy hayden, [place] - [facility] [place] [facility] [place] 3 14:22:22 Depressive disorder 91843790 Active 2022 Nancy hayden, [place] - [facility] [place] [facility] [place] 3 14:23:49 Denture present 976572927 Active 2022 Nancy hayden, [place] - [facility] [place] [facility] [place] 3 14:24:01 Problem Notes None recorded. Procedures Surgical History Date Name Laterality Status Provider Name and Address Organization Details Recorded Time Caesarean Section completed Nancy ROASS - [facility] - [place] [facility] [place] 2022 14:35:47 cholecystectomy completed Nancy ROSAS - [facility] - [place] [facility] [place] 2022 14:35:55 total replacement of left knee joint completed Nancy Marroquin [facility] [place] [facility] [place] 2022 14:36:07 reconstruction of nose completed Nancy Marroquin [facility] [place] [facility] [place] 2022 14:36:24 tonsillectomy completed Nancy ROSAS - [facility] - [place] [facility] [place] 2022 14:36:31 procedure on tongue completed Mesha ROSAS - [facility] - [place] [facility] [place] 2022 14:37:01 release of trigger finger completed Nancy ROSAS - [facility] - [place] [facility] [place] 2022 14:37:27 total replacement of right knee joint completed Nancy ROSAS - [facility] [place] [facility] [place] 2022 14:37:38 bilateral extraction of cataracts completed Nancy ROSAS - [facility] & [place] 2022 14:37:49 colonoscopy completed Nancy BREWSTER [facility] & [place] 2022 14:37:56 procedure on joint completed Suly BREWSTER [facility] & [place] 2022 14:38:20 total replacement of hip completed Nancy BREWSTER [facility] & [place] 2022 14:38:31 repair of umbilical hernia completed Nancy BREWSTER [facility] & [place] 2022 14:38:41 Eardrum revision completed Nancy BREWSTER [facility] & [place] 2022 14:38:53 Imaging Results None recorded. Procedure Notes None recorded. Medical Equipment None Reported. Allergies Allergen ID Allergen Name Allergen Category Reaction Reaction Severity Criticality Documentation Date Start Date Code Code System Note Provider Name and Address Organization Details Recorded Time 89343 propoxyph bela hydrochlo ride medicatio n Not available Not available Not available 2022 12318 RxNorm ALISON Romero [facility] & [place] 14:39:13 14593 morphine medicatio n Not available Not available Not available 2022 7052 RxNorm ALISON Romero [facility] & [place] 3 14:39:20 64010 hydrocodo ne Not available Not available Not available Not available 2022 5489 RxNorm ALISON Romero [facility] & [place] 3 14:39:30 Medications Name Sig Start Date Stop Date Status Note LastModified by Organization Details LastModified Time amoxicillin 500 mg capsule 07/21 completed Not Available Not Available Not Available latanoprost 0.005 % eye drops INSTILL 1 DROP INTO BOTH EYES AT BEDTIME active Not Available Not Available No t Available nystatin 100,000 unit/mL oral suspension 07/21 completed Not Available Not Available Not Available carvedilol 6.25 mg tablet active Not Available Not Available Not Available nitrofurant oin macrocrysta l 50 mg capsule Take 1 capsule every day by oral route. active Not Available Not Available No t Available citalopram 40 mg tablet 07/21 completed Not Available Not Available Not Available azithromyci n 250 mg tablet active Not Available Not Available Not Available citalopram 10 mg tablet TAKE ONE TABLET BY MOUTH DAILY active Not Available Not Available No t Available tolterodine ER 4 mg capsule,ext ended release 24 hr TAKE ONE CAPSULE BY MOUTH EVERY DAY active Not Available Not Available No t Available cephalexin 250 mg capsule TAKE ONE CAPSULE BY MOUTH ONCE DAILY active Not Available Not Available No t Available hydrocodone 5 mg-acetamin ophen 325 mg tablet active Not Available Not Available No t Available fluocinonid e 0.05 % topical gel 07/21 completed Not Available Not Available Not Available fluconazole 200 mg tablet 07/21 completed Not Available Not Available Not Available ondansetron HCl 4 mg tablet active Not Available Not Available Not Available Accu-Chek Softclix Lancets USE TO TEST 3 TIMES DAILY active Not Available Not Available No t Available metronidazo le 500 mg tablet 07/21 completed Not Available Not Available Not Available ciprofloxac in 500 mg tablet 07/21 completed Not Available Not Available Not Available sulfamethox azole 800 mg-trimetho prim 160 mg tablet TAKE ONE TABLET BY MOUTH TWICE DAILY FOR 10 DAYS -- FINISH ALL MEDICINE -- active Not Available Not Available No t Available omeprazole 40 mg capsule,del ayed release TAKE ONE CAPSULE BY MOUTH DAILY FOR gerd active Not Available Not Available No t Available levothyroxi ne 75 mcg tablet TAKE ONE TABLET BY MOUTH EVERY DAY active Not Available Not Available No t Available nystatin-tr iamcinolone 100,000 unit/gram-0 .1 % topical ointment active Not Available Not Available Not Available nortriptyli ne 25 mg capsule TAKE ONE CAPSULE BY MOUTH EVERY DAY AT BEDTIME FOR LEG pain active Not Available Not Available No t Available citalopram 20 mg tablet active Not Available Not Available Not Available doxycycline monohydrate 100 mg capsule active Not Available Not Available Not Available metformin 1,000 mg tablet TAKE ONE TABLET BY MOUTH TWICE DAILY FOR diabetes active Not Available Not Available No t Available triamcinolo ne acetonide 0.1 % topical ointment APPLY TOPICALLY TO THE AFFECTED AREA(S) EVERY DAY NEEDED FOR RASH active Not Available Not Available No t Available furosemide 20 mg tablet TAKE ONE TABLET BY MOUTH EVERY DAY FOR fluid active Not Available Not Available No t Available metoprolol succinate ER 25 mg tablet,exte nded release 24 hr TAKE ONE TABLET BY MOUTH EVERY DAY active Not Available Not Available No t Available levofloxaci n 500 mg tablet active Not Available Not Available Not Available albuterol sulfate HFA 90 mcg/actuati on aerosol inhaler active Not Available Not Available Not Available losartan 100 mg tablet TAKE ONE TABLET BY MOUTH EVERY DAY active Not Available Not Available No t Available fluticasone propionate 50 mcg/actuati on nasal spray,suspe nsion active Not Available Not Available Not Available tacrolimus 1 mg capsule, immediate-r elease 07/21 completed Not Available Not Available Not Available ezetimibe 10 mg tablet TAKE ONE TABLET BY MOUTH DAILY active Not Available Not Available No t Available chlorhexidi ne gluconate 0.12 % mouthwash FILL SUPPLIED CUP (1/2 OUNCE); SWISH IN MOUTH FOR 30 SECONDS TWICE DAILY (AFTER BREAKFAST & BEFORE BEDTIME). SWISH THEN EXPEL REMAINDER OR USE DIRECTED active Not Available Not Available No t Available calcium-mag nesium-zinc active Not Available Not Available Not Available ferrous sulfate active Not Available Not Available Not Available nortriptyli ne active Not Available Not Available Not Available FeroSul 325 mg (65 mg iron) tablet TAKE ONE TABLET BY MOUTH EVERY DAY active Not Available Not Available No t Available CoQ-10 active Not Available Not Availa ble Not Available BD Ultra-Fine Bita Pen Needle 32 gauge x USE FOR insulin injection s FIVE TIMES DAILY active Not Available Not Available No t Available Lumigan 0.01 % eye drops active Not Available Not Available Not Available Victoza 2-Toni 0.6 mg/0.1 mL (18 mg/3 mL) subcutaneou s pen injector INJECT 1.2 MG SUBCUTANE OUSLY EVERY DAY FOR FOR DIABETES active Not Available Not Available No t Available Tresiba FlexTouch U-200 insulin 200 unit/mL (3 mL) subcutaneou s pen Inject 50 units SUBCUTANE OUSLY EVERY DAY AT BEDTIME active Not Available Not Available No t Available Accu-Chek Guide test strips USE TO TEST 3 TIMES A DAY active Not Available Not Available No t Available Accu-Chek Guide Me Glucose Meter USE TO TEST 3 TIMES A DAY active Not Available Not Available No t Available QuickVue At-Home COVID-19 Test kit 07/21 completed Not Available Not Available Not Available Mounjaro 2.5 mg/0.5 mL subcutaneou s pen injector INJECT THE CONTENTS OF 1 PEN (2.5 MG / 0.5ML) SUBCUTANE OUSLY ONCE A WEEK FOR 4 WEEKS active Not Available Not Available No t Available Clenpiq 10 mg-3.5 gram-12 gram/175 mL oral solution active Not Available Not Available Not Available Vitals Date Recorded Body height Body mass index (BMI) Body weight Body temperature Provider Name and Address Organization Details Last Updated DateTime 06/22/2024 162.56 cm 32.4 kg/m2 07572.96 g 98.1 [degF] Christy Richards [facility] & [place] 06/22/2024 11:14:46 Date Recorded Body height Body mass index (BMI) Body weight Body temperature Provider Name and Address Organization Details Last Updated DateTime 07/15/2023 162.56 cm 32.4 kg/m2 93008.96 g 97.9 [degF] Nancy Estes [facility] & [place] 07/15/2023 11:02:24 Date Recorded Body height Body mass index (BMI) Body weight Body temperature Provider Name and Address Organization Details Last Updated DateTime 2022 162.56 cm 32.4 kg/m2 17199.96 g 97.5 [degF] Nancy Estes [facility] & [place] 2022 14:20:30 Social History None recorded. Functional Status Question Answer Note LastModified by Organization D etails LastModified Time What is your level of alcohol consumption? None Information not available 2022 Mental Status None recorded. Family History Relationship Description Onset Age of this Age Resolved Age Notes LastModified by Organization Details LastModified Time Mother Sepsis dec [email or web address] Not available 2022 14:24:36 Father Heart disease dec [email or web address] Not available 2022 14:24:44 Sister Acute stroke [email or web address] Not avai lable 2022 14:25:04 Medical History No medical history recorded. Gynecological HistoryNo gynecological history recorded. Obstetrics History GPAL:G 0 P 0 0 0 0 Past Encounters Encounter ID Performer Location Encounter Start Date Encounter Closed Date Diagnosis/Indication Diagnosis SNOMED-CT Code Diagnosis ICD10 Code Diagnosis IMO Codes Diagnosis Note [id number] Clement Anguiano Jr, MD [facility] [address] [address] 2022 14:02:22 2022 14:42:22 Recurrent urinary tract infection 558182924 N39.0 patient with a history of recurrent urinary tract infections . She is been on nitrofuran toin 50 mg prophylaxi s for 2 or 3 years. I recommende d that we change her prophylaxi s to prevent any long-term complicati ons from the nitrofuran toin in a prescripti on for Keflex 250 mg every day was sent in today. Urge incon tinence of urine 38581534 N39.41 patient with history of urge incontinen ce. She continues to do well with Detrol 4 mg a day and we will continued. [id number] Clement Anguiano Jr, MD [facility] [address] [address] 07/15/2023 10:49:04 07/15/2023 11:32:57 Recurrent urinary tract infection 708896406 N39.0 patient with a history of recurrent urinary tract infections . Patient continues on Keflex 250 mg prophylaxi s +1 cranberry tablet a day. This is worked well for her prevention of urinary tract infections . I discussed that she may take 2 cranberry tablets per day and we also discussed hydrating well and voiding on a timed basis. Urge incon tinence of urine 33427100 N39.41 patient with history of urge incontinen ce. She continues to do well with Detrol 4 mg a day and we will continued. [id number] Clement Anguiano Jr, MD [facility] [address] [address] 06/22/2024 10:28:00 06/22/2024 11:35:18 Recurrent urinary tract infection 635618415 N39.0 patient with a history of recurrent urinary tract infections . Patient continues on Keflex 250 mg prophylaxi s +1 cranberry tablet a day. This is worked well for her prevention of urinary tract infections . I discussed that she may take 2 cranberry tablets per day and we also discussed hydrating well and voiding on a timed basis. Urge incon tinence of urine 76243079 N39.41 patient with history of urge incontinen ce. She continues to do well with Detrol 4 mg a day and we will continued. Health Concerns Section Related Observation LastModified by Organization Detai ls LastModified Time None Recorded Concern Status LastModified by Organization Details LastModified Time None Recorded Advance Directives Directive None Recorded Payers Insurance Date Sequence Insurance Name Policy Number Policy Sweeney Covered Member ID Sweeney Member ID Guarantor Name 06/25/2024 2 [place] [id number] Alexandra Giraldo Hannah [id number] Alexandra Young 06/22/2024 1 [place] Alexandra L Hannah [id number] Alexandra L Hannah Notes Date Note Type Note Provider Name and Address Organization Details Recorded Time 2022 text/html patient is a 77-year-old white female with a history of urge incontinence, recurrent urinary tract infections and mild stress incontinence. She returns today for her yearly appointment. [facility]. She continues on nitrofurantoin 50 mg a day prophylaxis as well as Detrol 4 mg for the urge incontinence. She continues to have some mild stress incontinence which is improved with timed voiding. She states she has some occasional cramping in the urethral area which she correlates with a urinary tract infection. She will start increasing fluids and taking azo typically and that improves the symptoms. Clement Anguiano Jr, MD [address] [place] [address], [address], [place], [address], [place] - [facility] [place] [facility] [place] 2022 14:45:19 07/15/2023 text/html ROS as noted in the HPI patient is a 77-year-old white female with a history of urge incontinence, recurrent urinary tract infections and mild stress incontinence. She returns today in yearly follow-up. She continues on Keflex 250 mg prophylaxis just helped a great deal with her urinary tract infections. She also takes 1 cranberry tablets per day. She states she has had a couple of mild UTIs over the past year.Patient also continues on Detrol 4 mg a day with good results. She denies any significant leakage problems on medication. Clement Anguiano Jr, MD [address] [facility], [address], [place], [address], [facility] - [facility] & [place] 07/15/2023 16:48:59 06/22/2024 text/html ROS as noted in the HPI patient is a 78-year-old white female with history of urge incontinence, recurrent urinary tract infections. She returns for yearly follow-up today. She continues on prophylactic cephalexin for UTI prophylaxis and tolterodine for urge incontinence. She states she is doing very well with both. She states 1 urinary tract infections since her last visit that was treated by her primary care physician. Clement Anguiano Jr, MD [address], [address], [place], [address], [facility] - [facility] & [place] 06/22/2024 12:14:33 OBGyn Episode No OBEpisode recorded.
[2025-02-22 11:08] LABS: Hematocrit 39.8 % (37.0-47.0); Hemoglobin 12.9 g/dL (12.2-16.2); Immature Granulocytes % 0.9 %; Mean Corpuscular HGB Conc 32.4 g/dL (31.8-35.4); Mean Corpuscular Hemoglobin 27.2 pg (27.0-31.2); Mean Corpuscular Volume 83.8 fl (81-99); Nucleated Red Blood Cells % 0 %; Platelet Count 260 K/mm3 (142-424); Red Blood Count 4.75 M/mm3 (4.20-5.40); Red Cell Distribution Width-SD 45.0 fL; White Blood Count 7.5 K/mm3 (4.8-10.8)
[2025-02-22 11:14] LABS: INR 0.99 (0.9-1.1); Prothrombin Time 11.0 seconds (10.1-12.5)
[2025-02-22 11:16] LABS: Ammonia < 9 umol/L (9-30)
[2025-02-22 11:36] LABS: Alanine Aminotransferase 15 U/L (12-78); Albumin Level 3.7 g/dl (3.5-5.0); Albumin/Globulin Ratio 1.5 (1.1-1.8); Alkaline Phosphatase 58 U/L (38-126); Anion Gap 12.3 mEq/L (5-15); Aspartate Amino Transferase 31 U/L (14-36); Bilirubin,Total 0.7 mg/dl (0.2-1.3); Blood Urea Nitrogen 9 mg/dl (7-17); Calcium 9.4 mg/dl (8.4-10.2); Carbon Dioxide 33 mmol/L (22.0-30.0); Chloride 89 mmol/L (98-107); Creatinine,Serum 0.60 mg/dl (0.52-1.04); Estimated Glomerular Filt Rate 97 ml/min (>60); GFR (African American) 117 ML/MIN (>60); Globulin 2.5 g/dL (1.3-3.2); Glucose 89 mg/dl (74-100); Potassium 4.3 mmoL/L (3.5-5.1); Sodium 130 mmol/L (136-145); Total Protein,Serum 6.2 g/dl (6.3-8.2)
[2025-02-22 12:44] LABS: Iron 55 ug/dL (37-170)
[2025-02-22 12:53] LABS: Total Iron Binding Capacity 356 ug/dL (265-497)
[2025-02-22 13:20] LABS: Ferritin 6.62 ng/ml (11.1-264)
== END 2025-02-22 23:59 | disposition home or self-care (01) ==
LOC: LAB 10:41
PROVIDERS: PCP Nurse Practitioner Family; Visit Provider Nurse Practitioner Family
DX: K74.00 Hepatic fibrosis, unspecified (principal)
CPT/HCPCS: 36415; 80053; 82105; 82140; 82728; 83540; 83550; 85025; 85610

== ENCOUNTER 2025-02-25 08:57 | Outpatient (CLI) | payer MEDICARE, BC, SELFPAY ==
--- NOTE | 2025-02-25 09:00 | US_ITS ---
FINAL REPORT CLINICAL HISTORY: Advanced fibrosis/early cirrhosis COMPARISON: 07/23/2024 FINDINGS: Sonographic images of the right upper quadrant were obtained. The pancreas is obscured. Increased echogenicity of the liver is probably due to fatty infiltration or cirrhosis. The gallbladder is absent. There is no evidence of biliary ductal dilatation.The common duct measures 2 mm. Limited images of the right kidney are unremarkable. IMPRESSION: Increased echogenicity of the liver, fatty infiltration versus cirrhosis. Reviewed, Interpreted and Dictated by Pedrito Adames MD Transcribed by Meena Finley Authenticated and [facility]
--- OUTSIDE RECORDS SUMMARY | 2025-02-25 09:09 | XMS_ITS | Data Portability ---
Author Organization [place] - [facility] [place] [facility] [place] Alejandro ADMIN Address [address] [place] [id number] Assessment No assessment recorded. Plan of Treatment Reminders Order Date Submit Date Provider Last Modified By Organization Details Last Modified Time Details Appointments OV EST 15 2025 11:00A M Clement Anguiano Jr, MD Not available Not available Not available Lab urinalysi s, dipstick [address], [address], 06/25/2024 14:05:01 urinalysi s, dipstick [address], [address], 07/18/2023 09:19:22 Referral None recorded. Procedures None recorded. Surgeries None recorded. Imaging None recorded. Medication Orders cephalexi n [address] [facility], [address] [place] [address], [id number], 11/23/2024 13:24:13 tolterodi ne ER 4 mg capsule,e xtended release [address] [facility], [address] [place] [address] E [facility] [address] [place] [address], [id number], 11/23/2024 13:24:13 cephalexi n 250 mg capsule 2023 024 SHANIQUE [facility], [address] [facility] [address], [place], [address], 07/15/2023 16:49:17 tolterodi ne ER 4 mg capsule,e xtended release 24 hr 2023 024 [facility], [address] [place] [address], [facility], [place], [address], 07/15/2023 16:49:18 Keflex 250 mg capsule 2022 023 [facility], [address] [place] [address], [facility], [place], [address], 2022 20:16:13 tolterodi ne ER 4 mg capsule,e xtended release 24 hr 2022 023 [facility], [address] [place] [address], [facility], [place], [address], 2022 14:47:10 Patient TargetsNo targets recorded. Patient InstructionsNo instructions recorded. Reason for Referral None Reported. Results Created Date Observation Date Name Description Value Unit Range Abnormal Flag Note LastModifiedBy Organization Detail LastModifiedTime 07/15/19 24 07/15/2023 urina lysis , dipst ick Leukocytes (reference range) negati ve Not Available [facility] [address], [address], 07/15/2023 11:02:36 07/15/19 24 07/15/2023 urina lysis , dipst ick Nitrite (reference range:) negati ve Not Available [facility] [address], [address], 07/15/2023 11:02:36 07/15/19 24 07/15/2023 urina lysis , dipst ick Urobilinogen (reference range) 0.2 Not Available [facility] [address], [address], 07/15/2023 11:02:36 07/15/19 24 07/15/2023 urina lysis , dipst ick Protein (reference range) negati ve Not Available [address], [address], 07/15/2023 11:02:36 07/15/19 24 07/15/2023 urina lysis , dipst ick pH (reference range 5-8.5) 6.5 Not Available [address], [address], 07/15/2023 11:02:36 07/15/19 24 07/15/2023 urina lysis , dipst ick Blood (reference range:) negati ve Not Available [address], [address], 07/15/2023 11:02:36 07/15/19 24 07/15/2023 urina lysis , dipst ick Specific Aztec (reference range) 1.010 Not Available [address], [address], 07/15/2023 11:02:36 07/15/19 24 07/15/2023 urina lysis , dipst ick Ketone (reference range) negati ve Not Available [address], [address], 07/15/2023 11:02:36 07/15/19 24 07/15/2023 urina lysis , dipst ick Bilirubin (reference range) negati ve Not Available [address], [address], 07/15/2023 11:02:36 07/15/19 24 07/15/2023 urina lysis , dipst ick Glucose (reference range) negati ve Not Available [address], [address], 07/15/2023 11:02:36 06/22/19 25 06/22/2024 urina lysis , dipst ick Leukocytes (reference range) negati ve Not Available [address], [address], 06/22/2024 11:16:10 06/22/19 25 06/22/2024 urina lysis , dipst ick Nitrite (reference range:) negati ve Not Available [address], [address], 06/22/2024 11:16:10 06/22/19 25 06/22/2024 urina lysis , dipst ick Urobilinogen (reference range) 0.2 Not Available [address], [address], 06/22/2024 11:16:10 06/22/19 25 06/22/2024 urina lysis , dipst ick Protein (reference range) negati ve Not Available [address], [address], 06/22/2024 11:16:10 06/22/19 25 06/22/2024 urina lysis , dipst ick pH (reference range 5-8.5) 5.5 Not Available [address], [address], 06/22/2024 11:16:10 06/22/19 25 06/22/2024 urina lysis , dipst ick Blood (reference range:) negati ve Not Available [address], [address], 06/22/2024 11:16:10 06/22/19 25 06/22/2024 urina lysis , dipst ick Specific Aztec (reference range) 1.015 Not Available [address], [address], 06/22/2024 11:16:10 06/22/19 25 06/22/2024 urina lysis , dipst ick Ketone (reference range) negati ve Not Available [address], [address], 06/22/2024 11:16:10 06/22/19 25 06/22/2024 urina lysis , dipst ick Bilirubin (reference range) negati ve Not Available [address], [address], 06/22/2024 11:16:10 06/22/19 25 06/22/2024 urina lysis , dipst ick Glucose (reference range) negati ve Not Available [address], [address], 06/22/2024 11:16:10 06/22/19 25 06/22/2024 urina lysis , dipst ick Color (reference range: yellow-brown ) Yellow Not Available [address], [address], 06/22/2024 11:16:10 Result Notes None recorded. Problems Name Problem SNOMED Code Status Onset Date Resolution Date Notes Provider Name and Address Organization Details Recorded Time Hypertensive disorder 44678749 Active 2022 Nancy hayden, [place] - [facility] [place] [facility] [place] 3 14:21:00 Diabetes mellitus 42188001 Active 2022 Nancy hayden, [place] - [facility] - [place] [facility] [place] 3 14:21:14 Hypercholester olemia 95090388 Active 2022 Nancy hayden, [place] - [facility] - [place] [facility] [place] 3 14:21:29 Sleep apnea 94426557 Active 2022 Nancy hayden, [place] - [facility] [place] [facility] [place] 3 14:21:49 Gastroesophage al reflux disease 884218422 Active 2022 Nancy hayden, [place] - [facility] [place] [facility] [place] 3 14:21:57 Glaucoma 21403531 Active 2022 Nancy hayden, [place] - [facility] [place] [facility] [place] 3 14:22:16 Arthritis 8968862 Active 2022 Nancy hayden, [place] - [facility] [place] [facility] [place] 3 14:22:22 Depressive disorder 23397445 Active 2022 Nancy hayden, [place] - [facility] [place] [facility] [place] 3 14:23:49 Denture present 322769356 Active 2022 Nancy hayden, [place] - [facility] [place] [facility] [place] 3 14:24:01 Problem Notes None recorded. Procedures Surgical History Date Name Laterality Status Provider Name and Address Organization Details Recorded Time Caesarean Section completed Nancy ROSAS - [facility] [place] [facility] [place] 2022 14:35:47 cholecystectomy completed Nancy ROSAS - [facility] [place] [facility] [place] 2022 14:35:55 total replacement of left knee joint completed Nancy Marroquin [facility] [place] [facility] [place] 2022 14:36:07 reconstruction of nose completed Nancy Marroquin [facility] [place] [facility] [place] 2022 14:36:24 tonsillectomy completed Nancy ROSAS - [facility] [place] [facility] [place] 2022 14:36:31 procedure on tongue completed Mesha ROSAS - [facility] [place] [facility] [place] 2022 14:37:01 release of trigger finger completed Nancy ROSAS - [facility] [place] [facility] [place] 2022 14:37:27 total replacement of right knee joint completed Nancy ROSAS - [facility] [place] [facility] [place] 2022 14:37:38 bilateral extraction of cataracts [facility] [place] 2022 14:37:49 colonoscopy completed Nancy [facility] [place] 2022 14:37:56 procedure on joint completed Suly BREWSTER [facility] [place] 2022 14:38:20 total replacement of hip completed Nancy BREWSTER [facility] [place] 2022 14:38:31 repair of umbilical hernia completed Nancy BRE[facility]STER [facility] [place] 2022 14:38:41 Eardrum revision completed Nancy BREWSTER [facility] [place] 2022 14:38:53 Imaging Results None recorded. Procedure Notes None recorded. Medical Equipment None Reported. Allergies Allergen ID Allergen Name Allergen Category Reaction Reaction Severity Criticality Documentation Date Start Date Code Code System Note Provider Name and Address Organization Details Recorded Time 61470 propoxyph bela hydrochlo ride medicatio n Not available Not available Not available 2022 27563 RxNorm ALISON Romero [facility] [place] 14:39:13 94831 morphine medicatio n Not available Not available Not available 2022 7052 RxNorm ALISON Romero [facility] [place] 3 14:39:20 94637 hydrocodo ne Not available Not available Not available Not available 2022 5489 RxNorm ALISON Romero [facility] [place] 3 14:39:30 Medications Name Sig Start Date [...] Updated DateTime 06/22/2024 162.56 cm 32.4 kg/m2 93757.96 g 98.1 [degF] Christy Richards [facility] & [place] 06/22/2024 11:14:46 Date Recorded Body height Body mass index (BMI) Body weight Body temperature Provider Name and Address Organization Details Last Updated DateTime 07/15/2023 162.56 cm 32.4 kg/m2 59022.96 g 97.9 [degF] Nancy Estes [facility] & [place] 07/15/2023 11:02:24 Date Recorded Body height Body mass index (BMI) Body weight Body temperature Provider Name and Address Organization Details Last Updated DateTime 2022 162.56 cm 32.4 kg/m2 87647.96 g 97.5 [degF] Nancy Estes [facility] & [place] 2022 14:20:30 Social History None recorded. Functional Status Question Answer Note LastModified by Organization D etails LastModified Time What is your level of alcohol consumption? None [email or web address] Information not available 2022 Mental Status None recorded. Family History Relationship Description Onset Age of this Age Resolved Age Notes LastModified by Organization Details LastModified Time Mother Sepsis dec [email or web address] Not available 2022 14:24:36 Father Heart disease dec [email or web address] Not available 2022 14:24:44 Sister Acute stroke [email or web address] Not avai lable 2022 14:25:04 Medical History No medical history recorded. Gynecological HistoryNo gynecological history recorded. Obstetrics History GPAL:G 0 P 0 0 0 0 Past Encounters Encounter ID Performer Location Encounter Start Date Encounter Closed Date Diagnosis/Indication Diagnosis SNOMED-CT Code Diagnosis ICD10 Code Diagnosis IMO Codes Diagnosis Note [id number] Clement Anguiano Jr, MD [facility] [address] [address] 2022 14:02:22 2022 14:42:22 Recurrent urinary tract infection 459027032 N39.0 patient with a history of recurrent [...] in today. Urge incon tinence of urine 03809063 N39.41 patient with history of urge incontinen ce. She continues to do well with Detrol 4 mg a day and we will continued. [id number] Clement [facility] Jr, [facility] [address] [address] 07/15/2023 10:49:04 07/15/2023 11:32:57 Recurrent urinary tract infection 447320442 N39.0 patient with a history of recurrent [...] timed basis. Urge incon tinence of urine 57567722 N39.41 patient with history of urge incontinen ce. She continues to do well with Detrol 4 mg a day and we will continued. [id number] Clement Anguiano Jr, [facility] [address] [address] 06/22/2024 10:28:00 06/22/2024 11:35:18 Recurrent urinary tract infection 346053764 N39.0 patient with a history of recurrent [...] timed basis. Urge incon tinence of urine 25110180 N39.41 patient with history of urge incontinen [...] Name 06/25/2024 2 [place] [id number] Alexandra Giraldo Hannah [id number] Alexandra Young 06/22/2024 1 [place] Alexandra L Hannah [id number] Alexandra L Hannah Notes Date Note Type Note Provider Name and Address Organization Details Recorded Time 2022 text/html patient is a 77-year-old white female with a history of urge incontinence, recurrent urinary tract infections and mild stress incontinence. She returns today for her yearly appointment. She was previously seen at [facility]. She continues on nitrofurantoin 50 mg a [...] improves the symptoms. Clement Anguiano Jr, MD [address] [place] [address], [address], [place], [address], [place] - [facility] [place] [facility] [place] 2022 14:45:19 07/15/2023 text/html ROS as noted [...] on medication. Clement Anguiano Jr, MD [address] [facility], [address], [place], [address], [facility] - [facility] [place] 07/15/2023 16:48:59 06/22/2024 text/html ROS as noted [...] care physician. Clement Anguiano Jr, MD [address], [address], [place], [address], [facility] - [facility] [place] 06/22/2024 12:14:33 OBGyn Episode No OBEpisode recorded.
--- OUTSIDE RECORDS SUMMARY | 2025-02-25 09:09 | XMS_ITS | Clinical Summary ---
Author Organization [facility] Address [address] [place] [address] Care Team Providers Care Miter Operator Name Role Phone Mauri Esquivel MD Primary Care Provider [phone] Family History Medical History Relation Name Comments [...] or (1 - 1-dose 75+ series) 2021 [id number] Vaccine (4 - 2024- season) 2025 07/10/2021, [...] age to complete this topic Insurance MEDICARE [facility] Care Teams Miter Operator Relationship Specialty Start Date End Date Mauri Esquivel MD [address] [place] [address] #1 #1 ALISON Cedeno [id number] PCP - General 09/17/22
== END 2025-02-25 23:59 | disposition home or self-care (01) ==
LOC: RAD 08:59
PROVIDERS: PCP Nurse Practitioner Family; Visit Provider Nurse Practitioner Family
DX: K75.81 Nonalcoholic steatohepatitis (NASH) (principal); K74.00 Hepatic fibrosis, unspecified; K74.60 Unspecified cirrhosis of liver; R93.2 Abnormal findings on diagnostic imaging of liver and biliary tract
CPT/HCPCS: 76705

== ENCOUNTER 2025-03-29 10:31 | Outpatient (CLI) | payer MEDICARE, BC, SELFPAY ==
--- OUTSIDE RECORDS SUMMARY | 2025-03-29 10:33 | XMS_ITS | Data Portability ---
Author Organization [place] - [facility] [place] Alejandro ADMIN Address [address] [place] [id number] Assessment No assessment recorded. Plan of Treatment Reminders Order Date Submit Date Provider Last Modified By Organization Details Last Modified Time Details Appointments OV EST 15 2025 11:00A M Clement Anguiano Jr, MD Not available Not available Not available Lab urinalysi s, dipstick [address], [address], 06/25/2024 14:05:01 urinalysi s, dipstick [address], [address], 07/18/2023 09:19:22 Referral None recorded. Procedures None recorded. Surgeries None recorded. Imaging None recorded. Medication Orders cephalexi n 250 mg capsule 2024 025 [facility], [address] [place] [address], [id number], 11/23/2024 13:24:13 tolterodi ne ER 4 mg capsule,e xtended release 24 hr 2024 025 [facility], [address] [place] [address], [id number], 11/23/2024 13:24:13 cephalexi n 250 mg capsule 2023 024 [facility], [address] [address], [place], [address], 07/15/2023 16:49:17 tolterodi ne ER 4 mg capsule,e xtended release 24 hr 2023 024 [facility], [address] [address], [place], [address], 07/15/2023 16:49:18 Keflex 250 mg capsule 2022 023 [facility], [address] [address], [place], [address], 2022 20:16:13 tolterodi ne ER 4 mg capsule,e xtended release 24 hr 2022 023 [facility], [address], [address], 2022 14:47:10 Patient TargetsNo targets recorded. Patient InstructionsNo instructions recorded. Reason for Referral None Reported. Results Created Date Observation Date Name Description Value Unit Range Abnormal Flag Note LastModifiedBy Organization Detail LastModifiedTime 07/15/19 24 07/15/2023 urina lysis , dipst ick Leukocytes (reference range) negati ve Not Available [facility] [address], [address], 07/15/2023 11:02:36 07/15/19 24 07/15/2023 urina lysis , dipst ick Nitrite (reference range:) negati ve Not Available [facility] [address], [address], 07/15/2023 11:02:36 07/15/19 24 07/15/2023 urina lysis , dipst ick Urobilinogen (reference range) 0.2 Not Available [facility] [address], [address], 07/15/2023 11:02:36 07/15/19 24 07/15/2023 urina lysis , dipst ick Protein (reference range) negati ve Not Available [address], [address], 07/15/2023 11:02:36 07/15/19 24 07/15/2023 urina lysis , dipst ick pH (reference range 5-8.5) 6.5 Not Available [address], [address], 07/15/2023 11:02:36 07/15/19 24 07/15/2023 urina lysis , dipst ick Blood (reference range:) negati ve Not Available [address], [address], 07/15/2023 11:02:36 07/15/19 24 07/15/2023 urina lysis , dipst ick Specific Flora (reference range) 1.010 Not Available [address], [address], 07/15/2023 11:02:36 07/15/19 24 07/15/2023 urina lysis , dipst ick Ketone (reference range) negati ve Not Available [address], [address], 07/15/2023 11:02:36 07/15/19 24 07/15/2023 urina lysis , dipst ick Bilirubin (reference range) negati ve Not Available [address], [address], 07/15/2023 11:02:36 07/15/19 24 07/15/2023 urina lysis , dipst ick Glucose (reference range) negati ve Not Available [address], [address], 07/15/2023 11:02:36 06/22/19 25 06/22/2024 urina lysis , dipst ick Leukocytes (reference range) negati ve Not Available [address], [address], 06/22/2024 11:16:10 06/22/19 25 06/22/2024 urina lysis , dipst ick Nitrite (reference range:) negati ve Not Available [address], [address], 06/22/2024 11:16:10 06/22/19 25 06/22/2024 urina lysis , dipst ick Urobilinogen (reference range) 0.2 Not Available [address], [address], 06/22/2024 11:16:10 06/22/19 25 06/22/2024 urina lysis , dipst ick Protein (reference range) negati ve Not Available [address], [address], 06/22/2024 11:16:10 06/22/19 25 06/22/2024 urina lysis , dipst ick pH (reference range 5-8.5) 5.5 Not Available [address], [address], 06/22/2024 11:16:10 06/22/19 25 06/22/2024 urina lysis , dipst ick Blood (reference range:) negati ve Not Available [address], [address], 06/22/2024 11:16:10 06/22/19 25 06/22/2024 urina lysis , dipst ick Specific Flora (reference range) 1.015 Not Available [address], [address], 06/22/2024 11:16:10 06/22/19 25 06/22/2024 urina lysis , dipst ick Ketone (reference range) negati ve Not Available [address], [address], 06/22/2024 11:16:10 06/22/19 25 06/22/2024 urina lysis , dipst ick Bilirubin (reference range) negati ve Not Available [address], [address], 06/22/2024 11:16:10 06/22/19 25 06/22/2024 urina lysis , dipst ick Glucose (reference range) negati ve Not Available [address], [address], 06/22/2024 11:16:10 06/22/19 25 06/22/2024 urina lysis , dipst ick Color (reference range: yellow-brown ) Yellow Not Available [address], [address], 06/22/2024 11:16:10 Result Notes None recorded. Problems Name Problem SNOMED Code Status Onset Date Resolution Date Notes Provider Name and Address Organization Details Recorded Time Hypertensive disorder 88497269 Active 2022 Nancy hayden, [place] - [facility] - [place] & [place] 3 14:21:00 Diabetes mellitus 94939244 Active 2022 Nancy hayden, [place] - [facility] - [place] & [place] 3 14:21:14 Hypercholester olemia 81809624 Active 2022 Nancy hayden, [place] - [facility] - [place] & [place] 3 14:21:29 Sleep apnea 39518139 Active 2022 Nancy hayden, [place] - [facility] - [place] 3 14:21:49 Gastroesophage al reflux disease 239859687 Active 2022 Nancy hayden, [place] - [facility] [place] 3 14:21:57 Glaucoma 91368163 Active 2022 Nancy hayden, [place] - [facility] [place] 3 14:22:16 Arthritis 1479286 Active 2022 Nancy hayden, [place] - [facility] [place] 3 14:22:22 Depressive disorder 77832479 Active 2022 Nancy hayden, [place] - [facility] [place] 3 14:23:49 Denture present 898477986 Active 2022 Nancy hayden, [place] - [facility] [place] 3 14:24:01 Problem Notes None recorded. Procedures Surgical History Date Name Laterality Status Provider Name and Address Organization Details Recorded Time Caesarean Section completed Nancy ROSAS - [facility] - [place] & [place] 2022 14:35:47 cholecystectomy completed Nancy ROSAS - [facility] - [place] & [place] 2022 14:35:55 total replacement of left knee joint completed Nancy Marroquin [facility] - [place] & [place] 2022 14:36:07 reconstruction of nose completed Nancy Marroquin [facility] - [place] & [place] 2022 14:36:24 tonsillectomy completed Nancy ROSAS - [facility] - [place] & [place] 2022 14:36:31 procedure on tongue completed Mesha ROSAS - [facility] - [place] & [place] 2022 14:37:01 release of trigger finger completed Nancy ROSAS - [facility] - [place] & [place] 2022 14:37:27 total replacement of right knee joint completed Nancy ROSAS - [facility] - [place] 2022 14:37:38 bilateral extraction of cataracts [facility] [place] 2022 14:37:49 colonoscopy completed Nancy BREWSTER [facility] & [place] 2022 14:37:56 procedure on joint completed Suly BREWSTER [facility] & [place] 2022 14:38:20 total replacement of hip completed Nancy BREWSTER [facility] & [place] 2022 14:38:31 repair of umbilical hernia completed Nancy BREWSTER [facility] & [place] 2022 14:38:41 Eardrum revision completed Nancy BREWSTER [facility] & [place] 2022 14:38:53 Imaging Results None recorded. Procedure Notes None recorded. Medical Equipment None Reported. Allergies Allergen ID Allergen Name Allergen Category Reaction Reaction Severity Criticality Documentation Date Start Date Code Code System Note Provider Name and Address Organization Details Recorded Time 05766 propoxyph bela hydrochlo ride medicatio n Not available Not available Not available 2022 77130 RxNorm ALISON Romero [facility] & [place] 14:39:13 83214 morphine medicatio n Not available Not available Not available 2022 7052 RxNorm ALISON Romero [facility] & [place] 3 14:39:20 38786 hydrocodo ne Not available Not available Not available Not available 2022 5489 RxNorm ALISON Romero [facility] & [place] 3 14:39:30 Medications Name Sig [...] Updated DateTime 06/22/2024 162.56 cm 32.4 kg/m2 85286.96 g 98.1 [degF] Christy Richards [facility] & [place] 06/22/2024 11:14:46 Date Recorded Body height Body mass index (BMI) Body weight Body temperature Provider Name and Address Organization Details Last Updated DateTime 07/15/2023 162.56 cm 32.4 kg/m2 79756.96 g 97.9 [degF] Nancy Estes [facility] & [place] 07/15/2023 11:02:24 Date Recorded Body height Body mass index (BMI) Body weight Body temperature Provider Name and Address Organization Details Last Updated DateTime 2022 162.56 cm 32.4 kg/m2 83359.96 g 97.5 [degF] Nancy Estes [facility] & [place] 2022 14:20:30 Social History None recorded. Functional Status Question Answer Note LastModified by Organization D etails LastModified Time What is your level of alcohol consumption? None [email or web address] Information not available 2022 Mental Status None recorded. Family History Relationship Description Onset Age of this Age Resolved Age Notes LastModified by Organization Details LastModified Time Mother Sepsis dec [email or web address] Not available 2022 14:24:36 Father Heart disease dec [email or web address] Not available 2022 14:24:44 Sister Acute stroke [email or web address] Not avai lable 2022 14:25:04 Medical History No medical history recorded. Gynecological HistoryNo gynecological history recorded. Obstetrics History GPAL:G 0 P 0 0 0 0 Past Encounters Encounter ID Performer Location Encounter Start Date Encounter Closed Date Diagnosis/Indication Diagnosis SNOMED-CT Code Diagnosis ICD10 Code Diagnosis IMO Codes Diagnosis Note [id number] Clement Anguiano Jr, MD [facility] [address] [address] 2022 14:02:22 2022 14:42:22 Recurrent urinary tract infection 313520344 N39.0 patient with a history of recurrent [...] in today. Urge incon tinence of urine 68927755 N39.41 patient with history of urge incontinen ce. She continues to do well with Detrol 4 mg a day and we will continued. [id number] Clement Anguiano Jr, MD [facility] [address] [address] 07/15/2023 10:49:04 07/15/2023 11:32:57 Recurrent urinary tract infection 705502161 N39.0 patient with a history of recurrent [...] timed basis. Urge incon tinence of urine 15582583 N39.41 patient with history of urge incontinen ce. She continues to do well with Detrol 4 mg a day and we will continued. [id number] Clement Anguiano Jr, MD [facility] [address] [address] 06/22/2024 10:28:00 06/22/2024 11:35:18 Recurrent urinary tract infection 494711436 N39.0 patient with a history of recurrent [...] timed basis. Urge incon tinence of urine 90126570 N39.41 patient with history of urge incontinen [...] Name 06/25/2024 2 [place] [id number] Alexandra Giraldo Hannha [id number] Alexandra Young 06/22/2024 1 [place] Alexandra L Hannah [id number] Alexandra L Hannah Notes Date Note Type Note Provider Name and Address Organization Details Recorded Time 2022 text/html patient is a 77-year-old white female with a history of urge incontinence, recurrent urinary tract infections and mild stress incontinence. She returns today for her yearly appointment. She was previously seen at [facility]. She continues on nitrofurantoin 50 mg [...] improves the symptoms. Clement Anguiano Jr, MD [address] [place] [address], [address], [place], [address], [place] - [facility] [place] 2022 14:45:19 07/15/2023 text/html ROS [...] on medication. Clement Anguiano Jr, MD [address], [address], [place], [address], [facility] - [facility] & [place] 07/15/2023 16:48:59 06/22/2024 text/html ROS [...] care physician. Clement Anguiano Jr, MD [address], [address], [place], [address], [facility] - LP[facility] & [place] 06/22/2024 12:14:33 OBGyn Episode No OBEpisode recorded.
--- OUTSIDE RECORDS SUMMARY | 2025-03-29 10:33 | XMS_ITS | Clinical Summary ---
Author Organization [facility] Address [address] [place] [address] Care Team Providers Care Putty And Caulking Supervisor Name Role Phone Mauri Esquivel MD Primary Care Provider [phone] Family History Medical History Relation Name Comments [...] or (1 - 1-dose 75+ series) 2021 XTI-WTESZ-62 Vaccine (4 - 2024- season) 2025 07/10/2021, [...] age to complete this topic Insurance MEDICARE [facility] Care Teams Putty And Caulking Supervisor Relationship Specialty Start Date End Date Mauri Esquivel MD [address] [place] [address] #1 #1 ALISON Cedeno [id number] PCP - General 09/17/22
--- NOTE | 2025-03-29 11:00 | MM_ITS ---
PROCEDURE INFORMATION: Exam: MG Bilateral Screening 3D Mammography Exam date and time: 03/29/2025 10:36 AM Age: 79 years old Clinical indication: Screening. Paternal cousins and paternal aunt had breast cancer. TECHNIQUE: Imaging protocol: Bilateral Screening tomosynthesis and 2D mammography including computer-aided detection (CAD) when performed. COMPARISON: 1. MG MM DIG SCREENING MAMM BI W/CAD 03/14/2024 2:35 PM 2. MG MM DIG SCREENING MAMM BI W/CAD 10/26/2022 10:27 AM 3. MG MM DIG SCREENING MAMM BI W/CAD 08/11/2021 8:09 AM 4. MG MM DIG SCREENING MAMM BI W/CAD 03/14/2019 10:36 AM FINDINGS: MAMMOGRAPHY: Breast composition: There are scattered areas of fibroglandular density. Mass: None. Architectural distortion: None. Calcifications: No suspicious calcifications. Asymmetric density: No developing asymmetry. Skin thickening: None. Axillary adenopathy: None. IMPRESSION: No mammographic evidence of malignancy. Annual screening is recommended unless otherwise clinically indicated. ASSESSMENT: BI-RADS Category 1: Negative.
== END 2025-03-29 23:59 | disposition home or self-care (01) ==
LOC: RAD 10:31
PROVIDERS: PCP Nurse Practitioner Family; Visit Provider Nurse Practitioner Family
DX: Z12.31 Encounter for screening mammogram for malignant neoplasm of breast (principal); R92.323 Mammographic fibroglandular density, bilateral breasts; Z80.3 Family history of malignant neoplasm of breast
CPT/HCPCS: 77063; 77067

== ENCOUNTER 2025-04-29 14:00 | Outpatient (CLI) | payer MEDICARE, BC, SELFPAY ==
--- OUTSIDE RECORDS SUMMARY | 2025-04-30 12:51 | XMS_ITS | Clinical Summary ---
Author Organization [facility] Address [address] [place] [address] Care Team Providers Care Grade And Center Marker Name Role Phone Mauri Esquivel MD Primary Care Provider [phone] Family History Medical History Relation Name Comments [...] or (1 - 1-dose 75+ series) 2021 [id number]-35 Vaccine (4 - 2024- season) 2025 07/10/2021, [...] age to complete this topic Insurance MEDICARE [facility] Care Teams Grade And Center Marker Relationship Specialty Start Date End Date Mauri Esquivel MD [address] [place] [address] #1 #1 ALISON Cedeno [phone] PCP - General 09/17/22
== END 2025-04-29 23:59 | disposition home or self-care (01) ==
LOC: LAB.DROPOF 04-30 12:50
PROVIDERS: PCP Nurse Practitioner Family; Visit Provider Nurse Practitioner Family
DX: R30.0 Dysuria (principal); R10.20 Pelvic and perineal pain unspecified side
CPT/HCPCS: 87086; 87088

== ENCOUNTER 2025-05-13 08:14 | Outpatient (CLI) | payer MEDICARE, BC, SELFPAY ==
--- OUTSIDE RECORDS SUMMARY | 2025-05-15 08:17 | XMS_ITS ---
Laboratory report Created on: April 30, 2025 SEAN BLANC : 1945 Sex: Female Author Organization Unknown PROBLEMS Problems List Code Description RESULTS Laboratory Orders Date Order Code Test 2024-07-23 [id number] HAYES FIBROSURE(R ) PLUS Laboratory Results Date LOINC Test Value Unit Reference Range Interpre tation 2024-07-23 17934-2 FIBROSIS SCORE .5 0.00-0.21 H 2024-07-23 72572-8 FIBROSIS STAGE F2FEW 2024-07-23 61476-2 STEATOSIS SCORE .47 0.00-0.40 H 2024-07-23 07353-8 STEATOSIS GRADE S1NASH 2024-07-23 79835-2 HAYES SCORE .7 0.00-0.25 H 2024-07-23 86281-5 HAYES GRADE N2NASH 2024-07-23 1835-8 ALPHA 2-MACROGLOBULINS, QN 267 MG/DL 998-741 5546-02-24 4542-7 HAPTOGLOBIN 152 MG/DL 42-346 2024-07-23 1869-7 APOLIPOPROTEIN A-1 103 MG/DL 116-209 L 2024-07-23 1975-2 BILIRUBIN, TOTAL .6 MG/DL 0.0-1.2 2024-07-23 2324-2 GGT 13 IU/L 0-60 2024-07-23 1743-4 ALT (SGPT) P5P 13 IU/L 0-40 2024-07-23 09656-5 AST (SGOT) P5P 28 IU/L 0-40 2024-07-23 2093-3 CHOLESTEROL, TOTAL 109 MG/DL 037-175 6721-02-24 2345-7 GLUCOSE, SERUM 116 MG/DL 70-99 H 2024-07-23 2571-8 TRIGLYCERIDES 116 MG/DL 0-149
--- OUTSIDE RECORDS SUMMARY | 2025-05-15 08:17 | XMS_ITS ---
Laboratory report Created on: April 30, 2025 SEAN BLANC : 1945 Sex: Female Author Organization Unknown PROBLEMS Problems List Code Description RESULTS Laboratory Orders Date Order Code Test 2025-02-22 [id number] AFP, SERUM, TUMO R MARKER Laboratory Results Date LOINC Test Value Unit Reference Range Interpre tation 2025-02-22 78949-4 AFP, SERUM, TUMO R MARKER 2.5 NG/ML 0.0-9.2
--- OUTSIDE RECORDS SUMMARY | 2025-05-15 08:17 | XMS_ITS ---
Laboratory report Created on: April 30, 2025 SEAN BLANC : 1945 Sex: Female Author Organization Unknown PROBLEMS Problems List Code Description RESULTS Laboratory Orders Date Order Code Test 2023-05-16 [id number] RHEUMATOID FACTO R (RF) 2023-05-16 767270 ZAINA BY IFA RFX T ITER/PATTERN Laboratory Results Date LOINC Test Value Unit Reference Range Interpre tation 2023-05-16 47540-3 RHEUMATOID FACTOR (RF) 11.5 IU/ML <14.0 2023-05-16 70696-4 ZAINA BY IFA RFX TITER/PATTERN N
--- OUTSIDE RECORDS SUMMARY | 2025-05-15 08:17 | XMS_ITS | Clinical Summary ---
Author Organization [facility] Address [address] [place] [address] Care Team Providers Care Senior Electrical Designer Name Role Phone Mauri Esquivel MD Primary Care Provider [phone] Family History Medical History Relation Name Comments [...] or (1 - 1-dose 75+ series) 2021 KNL-GHGPS-54 Vaccine (4 - season) 2025 07/10/2021, 09/10/2020, 08/13/2020 UKY-Influenza Vaccine (#1) 01/28/202505/15, 04/03/2020, 03/03/2010 HPV Vaccines (No Doses Required) Completed UKY-HIB Vaccines Aged Out No longer e [...] age to complete this topic Insurance MEDICARE [facility] Care Teams Senior Electrical Designer Relationship Specialty Start Date End Date Mauri Esquivel MD [address] [place] [address] #1 #1 ALISON Cedeno [phone] PCP - General 09/17/22
[2025-05-17 15:01] LABS: BVAB2 Low - 0 Score (.); Candida albicans NAA Positive (Negative); Candida glabrata Negative (Negative); HSV 1 NAA Negative (Negative); HSV 2 NAA Negative (Negative)
== END 2025-05-13 23:59 | disposition home or self-care (01) ==
LOC: LAB.DROPOF 05-15 08:15
PROVIDERS: PCP Nurse Practitioner Family; Visit Provider Urology
DX: N95.2 Postmenopausal atrophic vaginitis (principal)
CPT/HCPCS: 87491; 87529; 87591; 87661; 87798; 87801

== ENCOUNTER 2025-05-15 09:58 | Outpatient (CLI) | payer MEDICARE, BC, SELFPAY ==
--- NOTE | 2025-05-15 10:00 | US_ITS ---
FINAL REPORT CLINICAL HISTORY: UTI FINDINGS: ULTRASOUND BLADDER WITH POST VOID RESIDUAL Bladder volumes were estimated based on 3 dimensional measurements, pre- and postvoid. Prevoid bladder volume: 492 mls Postvoid bladder volume: 31 mls IMPRESSION: Estimated bladder volumes as above with small postvoid residual . Reviewed, Interpreted and Dictated by Arianna Man MD Transcribed by Meena Finley Authenticated and [facility]
--- NOTE | 2025-05-15 10:30 | US_ITS ---
FINAL REPORT CLINICAL HISTORY: uti FINDINGS: RENAL ULTRASOUND Ultrasound images of the kidneys were obtained. The right kidney measures 11.8 cm in length. The left kidney measures 10.9 cm in length. The kidneys are normal in size. 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 The spleen is borderline enlarged. IMPRESSION: No evidence of obstruction or significant renal atrophy. Reviewed, Interpreted and Dictated by Arianna Man MD Transcribed by Meena Finley Authenticated and [facility]
--- OUTSIDE RECORDS SUMMARY | 2025-05-15 11:51 | XMS_ITS | Clinical Summary ---
Author Organization [facility] Address [address] [place] [address] Care Team Providers Care Real Estate Sales Supervisor Name Role Phone Mauri Esquivel MD Primary Care Provider [phone] Family History Medical History Relation Name Comments [...] or (1 - 1-dose 75+ series) 2021 AJY-[id number]-22 Vaccine (4 - season) 2025 07/10/2021, 09/10/2020, [...] age to complete this topic Insurance MEDICARE [facility] Care Teams Real Estate Sales Supervisor Relationship Specialty Start Date End Date Mauri Esquivel MD [address] [place] [address] #1 #1 AL[place] Cedeno [phone] PCP - General 09/17/22
== END 2025-05-15 23:59 | disposition home or self-care (01) ==
LOC: RAD 09:59
PROVIDERS: PCP Nurse Practitioner Family; Visit Provider Urology
DX: L90.0 Lichen sclerosus et atrophicus (principal); N39.0 Urinary tract infection, site not specified; N32.81 Overactive bladder; N35.92 Unspecified urethral stricture, female
CPT/HCPCS: 76770; 76857